=== PATIENT | female | born 1935 | race Caucasian/White ===

== ENCOUNTER → 2016-07-18 | Outpatient (CLI) | payer MEDICARE, OTHER | LOC: OD 10:35 | PROVIDERS: ATTEND Nurse Practitioner Adult Health | DX: Z08 Encounter for follow-up examination after completed treatment for malignant neoplasm (principal); Z85.118 Personal history of other malignant neoplasm of bronchus and lung | CPT/HCPCS: 71020 ==

== ENCOUNTER → 2016-11-23 | Outpatient (CLI) | payer MEDICARE, OTHER ==
[2016-11-23 10:21] LABS: CHOLESTEROL 130.36 mg/dL (0-200); Direct HDL 51 mg/dL (>40); TRIGLYCERIDES 129 mg/dL (<150)
[2016-11-23 10:38] LABS: DIRECT LDL 52 mg/dL (<100)
== END ==
LOC: OD 09:19
PROVIDERS: ATTEND Internal Medicine Cardiovascular Disease
DX: E78.00 Pure hypercholesterolemia, unspecified (principal)
CPT/HCPCS: 36415; 80061

== ENCOUNTER → 2016-12-20 | Outpatient (CLI) | payer MEDICARE, OTHER ==
[2016-12-20 12:25] LABS: ANION GAP 11 (5-19); BLOOD UREA NITROGEN 13 mg/dL (7-20); CALCIUM 9.6 mg/dL (8.4-10.2); CARBON DIOXIDE 29 mmol/L (22-30); CHLORIDE 102 mmol/L (98-107); CREATININE RESULT 0.62 mg/dL (0.52-1.25); GLUCOSE 63 mg/dL (75-110); MAGNESIUM 1.6 mg/dL (1.6-2.3); POTASSIUM 4.4 mmol/L (3.6-5.0); SODIUM 141.6 mmol/L (137-145)
== END ==
LOC: OD 10:54
PROVIDERS: ATTEND Internal Medicine Cardiovascular Disease
DX: Z79.899 Other long term (current) drug therapy (principal); E78.00 Pure hypercholesterolemia, unspecified; E83.42 Hypomagnesemia; E11.9 Type 2 diabetes mellitus without complications
CPT/HCPCS: 36415; 80048; 83036; 83735; 84443

== ENCOUNTER → 2017-01-10 | Outpatient (CLI) | payer MEDICARE, OTHER ==
[2017-01-10 16:38] LABS: HEMATOCRIT 36.4 % (36.0-47.0); HEMOGLOBIN 12.2 g/dL (12.0-15.5); HGB HCT DIFFERENCE 0.2; MEAN CORPUSCULAR HEMOGLOBIN 32.4 pg (27.0-33.4); MEAN CORPUSCULAR HGB CONC 33.5 g/dL (32.0-36.0); MEAN CORPUSCULAR VOLUME 97 fl (80-97); RED BLOOD COUNT 3.78 10^6/uL (3.72-5.28); RED CELL DISTRIBUTION WIDTH 13.5 % (11.5-14.0); WHITE BLOOD COUNT 5.7 10^3/uL (4.0-10.5)
--- NOTE | 2017-01-10 16:52 | RADIOLOGY REPORT (SQ) ---
EXAM DESCRIPTION: CHEST PA/LATERAL COMPLETED DATE/TIME: 01/10/2017 4:35 pm REASON FOR STUDY: COUGH,SHORTNESS OF BREATH COMPARISON: 07/18/2016 NUMBER OF VIEWS: Two view. TECHNIQUE: Frontal and lateral radiographic views of the chest acquired. LIMITATIONS: None. FINDINGS: LUNGS AND PLEURA: No opacities, masses or pneumothorax. No pleural effusion. MEDIASTINUM AND HILAR STRUCTURES: No masses or contour abnormalities. HEART AND VASCULATURE: Heart normal size. No evidence for failure. BONY STRUCTURES: No acute findings. HARDWARE: Status post transcatheter aortic valve replacement. OTHER: No other significant finding. IMPRESSION: No active pulmonary disease. Status post aortic valve replacement. TECHNICAL DOCUMENTATION: JOB ID: [id number] [employer]- All Rights Reserved
== END ==
LOC: OD 15:49
PROVIDERS: ATTEND Internal Medicine Cardiovascular Disease
DX: R06.02 Shortness of breath (principal); R05 Cough
CPT/HCPCS: 36415; 71020; 83880; 85027

== ENCOUNTER → 2017-02-02 | Outpatient (CLI) | payer MEDICARE, OTHER ==
--- NOTE | 2017-02-02 11:38 | RADIOLOGY REPORT (SQ) ---
EXAM DESCRIPTION: U/S ABD AORTIC SCREENING COMPLETED DATE/TIME: 02/02/2017 9:41 am REASON FOR STUDY: ESSENTIAL PRIMARY HYPERTENSION Z13.6 ENCOUNTER FOR SCREENING FOR CARDIOVASCULAR D ISORDERS COMPARISON: None. TECHNIQUE: Static and dynamic grayscale images acquired of the aorta and stored on PACs. Selected co romain Doppler and spectral images recorded. LIMITATIONS: None. FINDINGS: AORTIC CALIBER MAXIMAL PROXIMAL: 1.7 x 1.8 cm. MID: 1.8 x 2.1 cm. DISTAL: 2.4 x 2.4 cm. ILIAC DIAMETER RIGHT: 0.6 cm. LEFT: 0.8 cm. OTHER: There is some ectasia of the abdominal aorta with atherosclerotic plaquing IMPRESSION: NO ABDOMINAL AORTIC ANEURYSM. TECHNICAL DOCUMENTATION: JOB ID: [id number] [employer]- All Rights Reserved
== END ==
LOC: RAD 08:44
PROVIDERS: ATTEND Internal Medicine Cardiovascular Disease
DX: I10 Essential (primary) hypertension (principal)
CPT/HCPCS: 76706

== ENCOUNTER → 2017-03-16 | Outpatient (CLI) | payer MEDICARE, OTHER ==
[2017-03-16 15:28] LABS: ANION GAP 14 (5-19); BLOOD UREA NITROGEN 16 mg/dL (7-20); CALCIUM 9.5 mg/dL (8.4-10.2); CARBON DIOXIDE 27 mmol/L (22-30); CHLORIDE 104 mmol/L (98-107); CREATININE RESULT 0.69 mg/dL (0.52-1.25); GLUCOSE 125 mg/dL (75-110); SODIUM 145.3 mmol/L (137-145)
== END ==
LOC: OD 13:52
PROVIDERS: ATTEND Internal Medicine Cardiovascular Disease
DX: I35.9 Nonrheumatic aortic valve disorder, unspecified (principal); I70.0 Atherosclerosis of aorta; Z79.899 Other long term (current) drug therapy
CPT/HCPCS: 36415; 80048

== ENCOUNTER → 2018-01-04 | Outpatient (CLI) | payer MEDICARE, OTHER ==
[2018-01-04 09:58] LABS: HEMATOCRIT 39.4 % (36.0-47.0); HEMOGLOBIN 13.1 g/dL (12.0-15.5); MEAN CORPUSCULAR HEMOGLOBIN 32.2 pg (27.0-33.4); MEAN CORPUSCULAR HGB CONC 33.3 g/dL (32.0-36.0); MEAN CORPUSCULAR VOLUME 97 fl (80-97); PLATELET COUNT 264 10^3/uL (150-450); RED BLOOD COUNT 4.07 10^6/uL (3.72-5.28); RED CELL DISTRIBUTION WIDTH 14.3 % (11.5-14.0); WHITE BLOOD COUNT 6.2 10^3/uL (4.0-10.5)
[2018-01-04 10:39] LABS: ALANINE AMINOTRANSFERASE 21 U/L (9-52); ALBUMIN 4.1 g/dL (3.5-5.0); ALKALINE PHOSPHATASE 57 U/L (38-126); ANION GAP 10 (5-19); ASPARTATE AMINO TRANSFERASE 25 U/L (14-36); BILIRUBIN,DIRECT 0.3 mg/dL (0.0-0.4); BILIRUBIN,TOTAL 0.5 mg/dL (0.2-1.3); BLOOD UREA NITROGEN 16 mg/dL (7-20); CALCIUM 9.3 mg/dL (8.4-10.2); CARBON DIOXIDE 30 mmol/L (22-30); CHLORIDE 105 mmol/L (98-107); GLUCOSE 120 mg/dL (75-110); POTASSIUM 4.6 mmol/L (3.6-5.0); SODIUM 144.7 mmol/L (137-145); TOTAL PROTEIN 6.6 g/dL (6.3-8.2); TRIGLYCERIDES 118 mg/dL (<150)
[2018-01-04 10:50] LABS: DIRECT LDL 79 mg/dL (<100)
== END ==
LOC: LAB 09:34
PROVIDERS: ATTEND Internal Medicine Cardiovascular Disease
DX: E78.00 Pure hypercholesterolemia, unspecified (principal); R06.02 Shortness of breath; I10 Essential (primary) hypertension; E11.9 Type 2 diabetes mellitus without complications; Z79.899 Other long term (current) drug therapy
CPT/HCPCS: 36415; 80048; 80061; 80076; 83036; 83735; 83880; 84443; 85027

== ENCOUNTER → 2018-01-15 | Outpatient (CLI) | payer MEDICARE, OTHER ==
--- NOTE | 2018-01-15 11:00 | RADIOLOGY REPORT (SQ) ---
EXAM DESCRIPTION: CHEST PA/LATERAL COMPLETED DATE/TIME: 01/15/2018 10:33 am REASON FOR STUDY: SHORTNESS OF BREATH COMPARISON: Chest films 01/10/2017, 07/18/2016 CT chest 12/02/2015 EXAM PARAMETERS: NUMBER OF VIEWS: two views TECHNIQUE: Digital Frontal and Lateral radiographic views of the chest acquired. RADIATION DOSE: NA LIMITATIONS: none FINDINGS: LUNGS AND PLEURA: Old right upper lobectomy. Lungs are otherwise well inflated and clear. No pleural effusion. No pneumothorax MEDIASTINUM AND HILAR STRUCTURES: Surgical clips right hilum post upper lobectomy HEART AND VASCULAR STRUCTURES: No cardiomegaly. Aortic valve replacement BONES: Osteoporotic without acute thoracic compression deformity HARDWARE: Aortic valve OTHER: No other significant finding. 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
== END ==
LOC: OD 10:26
PROVIDERS: ATTEND Internal Medicine Cardiovascular Disease
DX: J44.9 Chronic obstructive pulmonary disease, unspecified (principal); R06.02 Shortness of breath; Z95.2 Presence of prosthetic heart valve
CPT/HCPCS: 71046

== ENCOUNTER → 2018-01-23 | Outpatient (CLI) | payer MEDICARE, OTHER ==
--- NOTE | 2018-01-23 09:12 | RADIOLOGY REPORT (SQ) ---
EXAM DESCRIPTION: U/S ABD AORTIC SCREENING COMPLETED DATE/TIME: 01/23/2018 8:58 am REASON FOR STUDY: ABDOMINAL PAIN R10.9 UNSPECIFIED ABDOMINAL PAIN COMPARISON: 02/02/2017 TECHNIQUE: Static and dynamic grayscale images acquired of the aorta and stored on PACs. Selected co romain Doppler and spectral images recorded. LIMITATIONS: The examination is somewhat limited due to bowel gas. FINDINGS: AORTIC CALIBER MAXIMAL PROXIMAL: 2.3 cm. MID: 2.7 cm. DISTAL: 2.6 cm. ILIAC DIAMETER RIGHT: Not visualized due to overlying bowel gas. LEFT: Not visualized due to overlying bowel gas. OTHER: Atherosclerotic changes involving the abdominal aorta. The abdominal aorta is ectatic in [place]. IMPRESSION: 1. The examination is limited as noted above. 2. The abdominal aorta is ectatic in appearance and atherosclerotic changes are identified. COMMENT: Aorta screening examinations categories: Negative - less than 3 cm. TECHNICAL DOCUMENTATION: JOB ID: [id number] [employer] All Rights Reserved Reading location - IP/workstation name: [email or web address]
== END ==
LOC: RAD 07:56
PROVIDERS: ATTEND Internal Medicine Cardiovascular Disease
DX: R10.9 Unspecified abdominal pain (principal); I70.1 Atherosclerosis of renal artery
CPT/HCPCS: 76706

== ENCOUNTER → 2018-02-18 | Outpatient (CLI) | payer MEDICARE, OTHER ==
[2018-02-18 09:19] LABS: ANION GAP 6 (5-19); BLOOD UREA NITROGEN 13 mg/dL (7-20); CARBON DIOXIDE 28 mmol/L (22-30); CHLORIDE 107 mmol/L (98-107); GLUCOSE 99 mg/dL (75-110); SODIUM 141.3 mmol/L (137-145)
== END ==
LOC: LAB 08:30
PROVIDERS: ATTEND Internal Medicine Cardiovascular Disease
DX: I10 Essential (primary) hypertension (principal); R06.02 Shortness of breath; E55.9 Vitamin D deficiency, unspecified
CPT/HCPCS: 36415; 80048; 82306; 83880

== ENCOUNTER 2018-11-16 03:21 | Inpatient (IN) | payer MEDICARE, OTHER ==
[2018-11-16] MEDS ORDERED: ONDANSETRON HCL INJ/PF 4 MG/2 ML SDV IV ONE (03:33)
[2018-11-16] MEDS ORDERED: FENTANYL CITRATE INJ/PF 100 MCG/2 ML AMPUL IV ONE (03:33)
--- NOTE | 2018-11-16 04:07 | ER Document Report ---
ED Fall - General Stated Complaint: RIGHT HIP PAIN Time Seen by Provider: 11/16/18 03:31 Mode of Arrival: Medic Information source: Patient Notes: Patient is an 83-year-old female presented to the emergency department after falling at home. Patient reports that she was walking behind the couch when she tripped over some cords. She states she landed on the right side. She is complaining of pain to her right lower extremity near the mid thigh. She has brought in via EMS. She has obvious external rotation of the right lower extremity with shortening. She was given 50 mcg of nasal fentanyl and 4 mg of Zofran ODT by EMS as they were unable to obtain an IV. Patient has past medical history of diabetes, hypertension and takes Lasix for what she says is peripheral edema. Patient denies history of CHF. TRAVEL OUTSIDE OF THE [place] IN LAST 30 DAYS: No - Related data Allergies/Adverse Reactions: pregabalin [From Lyrica] Allergy (Mild, Verified 11/16/18 05:16) WEAKNESS OF LIMBS, SWELLING IN LEGS Past Medical History - General Information source: Patient - Social History Smoking Status: Never Smoker Frequency of alcohol use: None Drug Abuse: None Family History: Reviewed & Not Pertinent - Past Medical History Cardiac Medical History: Reports: Hx Coronary Artery Disease, Hx Hypertension Denies: Hx Heart Attack Pulmonary Medical History: Reports: Hx COPD Denies: Hx Asthma, Hx Bronchitis, Hx Pneumonia Neurological Medical History: Denies: Hx Cerebrovascular Accident, Hx Seizures Musculoskeletal Medical History: Denies Hx Arthritis Past Surgical History: Reports: Hx Cardiac Catheterization - with stent placeme nt - Immunizations Immunizations up to date: Yes Hx Diphtheria, Pertussis, Tetanus Vaccination: No Review of Systems - Review of Systems Constitutional: No symptoms reported EENT: No symptoms reported Cardiovascular: No symptoms reported Respiratory: No symptoms reported Gastrointestinal: No symptoms reported Genitourinary: No symptoms reported Female Genitourinary: No symptoms reported Musculoskeletal: See HPI Skin: No symptoms reported Hematologic/Lymphatic: No symptoms reported Neurological/Psychological: No symptoms reported Physical Exam - Vital signs Vitals: Temp Pulse Resp BP Pulse Ox 97.6 F 91 15 132/96 H 99 11/16/18 03:21 11/16/18 03:21 11/16/18 03:21 11/16/18 03:21 11/16/18 03:21 - Notes Notes: PHYSICAL EXAMINATION: GENERAL: Well-appearing, well-nourished and in no acute distress. HEAD: Atraumatic, normocephalic. EYES: Pupils equal round and reactive to light, extraocular movements intact, conjunctiva are normal. ENT: Nares patent, oropharynx clear without exudates. Moist mucous membranes. NECK: Normal range of motion, supple without lymphadenopathy LUNGS: Breath sounds clear to auscultation bilaterally and equal. No wheezes rales or rhonchi. HEART: Regular rate and rhythm without murmurs ABDOMEN: Soft, nontender, nondistended abdomen. No guarding, no rebound. No masses appreciated. Female : deferred Musculoskeletal: Deformity noted to right hip area, external rotation noted to right lower extremity, shortening present. Strong dorsalis pedis pulse, normal motor and sensation distal to injury. Cap refill less than 3 seconds. NEUROLOGICAL: Cranial nerves grossly intact. Normal speech. Normal sensory, motor exams. PSYCH: Normal mood, normal affect. SKIN: Warm, Dry, normal turgor, no rashes or lesions noted. Course - Re-evaluation Re-evalutation: 11/16/18 05:15 Consulted orthopedic surgeon diamond cutter, Dr. Forde. He will consult on this patient and would like the patient admitted to the hospitalist. Patient accepted for admission by hospitalist, Dr. Mccall. Patient and family updated on plan of care. Femur X-Ray 11/16/18 03:31 IMPRESSION: Intertrochanteric fracture deformity better seen on dedicated pelvis x-ray. Osteopenia. No distal femur fracture copyright 2010 [employer]- All Rights Reserved Pelvis X-Ray 11/16/18 03:31 IMPRESSION: 1. Displaced intertrochanteric fracture of the proximal right femur with acute angulation of the fracture fragments. 2. Bilateral iliac artery stents are noted. - Vital Signs Vital signs: Temp Pulse Resp BP Pulse Ox 97.6 F 91 19 104/73 97 11/16/18 03:21 11/16/18 03:21 11/16/18 05:46 11/16/18 05:46 11/16/18 05:46 - Laboratory Result Diagrams: 11/16/18 03:38 11/16/18 03:38 Laboratory results interpreted by me: 11/16/18 11/16/18 03:38 03:38 WBC 20.7 H RDW 14.1 H Seg Neuts % (Manual) 88 H Lymphocytes % (Manual) 5 L Abs Neuts (Manual) 18.2 H BUN 23 H Glucose 216 H Discharge - Discharge Clinical Impression: Intertrochanteric fracture of right hip Condition: Stable Disposition: ADMITTED INPATIENT Admitting Provider: Stefany (Hospitalist) Unit Admitted: Medical Floor
--- NOTE | 2018-11-16 04:53 | RADIOLOGY REPORT (SQ) ---
EXAM DESCRIPTION: XR FEMUR 2 VIEWS COMPLETED DATE/TME: 11/16/2018 03:31 CLINICAL HISTORY: 83 years, Female, fall, RT leg pain, external rotation COMPARISON: None. NUMBER OF VIEWS: 3 TECHNIQUE: 3 view right femur LIMITATIONS: None. FINDINGS: Osteopenia. Displaced intertrochanteric fracture deformity, better seen on dedicated AP pelvis from today's date. No distal femur fracture. Vascular calcifications IMPRESSION: Intertrochanteric fracture deformity better seen on dedicated pelvis x-ray. Osteopenia. No distal femur fracture copyright 2010 [employer]- All Rights Reserved
[2018-11-16 04:54] LABS: HEMATOCRIT 37.7 % (36.0-47.0); HEMOGLOBIN 12.4 g/dL (12.0-15.5); MEAN CORPUSCULAR HEMOGLOBIN 31.9 pg (27.0-33.4); MEAN CORPUSCULAR HGB CONC 32.8 g/dL (32.0-36.0); MEAN CORPUSCULAR VOLUME 97 fl (80-97); PLATELET COUNT 306 10^3/uL (150-450); RED BLOOD COUNT 3.87 10^6/uL (3.72-5.28); RED CELL DISTRIBUTION WIDTH 14.1 % (11.5-14.0); WHITE BLOOD COUNT 20.7 10^3/uL (4.0-10.5)
--- NOTE | 2018-11-16 04:58 | RADIOLOGY REPORT (SQ) ---
EXAM: X-ray pelvis 1-2 views CLINICAL DATA: 83-year-old female with right leg pain status post fall TECHNICAL DATA: A single AP x-ray view of the pelvis was performed on 11/16/2018 at 4:12 AM. COMPARISONS: None FINDINGS: There is a displaced intertrochanteric fracture of the proximal right femur with acute angulation of the fracture fragments. The hip joints are intact. The sacroiliac joints and pubic symphysis are intact. No pathologic lytic or sclerotic bone lesions are identified. Bone mineralization is normal. Bilateral iliac artery stents are noted. Occasional vascular calcifications are seen. There are surgical clips in the left inguinal region. IMPRESSION: 1. Displaced intertrochanteric fracture of the proximal right femur with acute angulation of the fracture fragments. 2. Bilateral iliac artery stents are noted.
[2018-11-16 05:00] LABS: ALANINE AMINOTRANSFERASE 20 U/L (9-52); ALBUMIN 4.2 g/dL (3.5-5.0); ALKALINE PHOSPHATASE 65 U/L (38-126); ANION GAP 11 (5-19); ASPARTATE AMINO TRANSFERASE 31 U/L (14-36); BILIRUBIN,DIRECT 0.3 mg/dL (0.0-0.4); BILIRUBIN,TOTAL 0.5 mg/dL (0.2-1.3); BLOOD UREA NITROGEN 23 mg/dL (7-20); CALCIUM 9.3 mg/dL (8.4-10.2); CARBON DIOXIDE 25 mmol/L (22-30); CHLORIDE 103 mmol/L (98-107); GLUCOSE 216 mg/dL (75-110); POTASSIUM 3.8 mmol/L (3.6-5.0); TOTAL PROTEIN 7.1 g/dL (6.3-8.2)
[2018-11-16] MEDS ORDERED: MORPHINE SULFATE 10 MG/ML INJ IV ONE (05:08)
[2018-11-16 05:14] LABS: ABSOLUTE MONOCYTES # (MANUAL) 1.4 10^3/uL (0.1-1.4); BASOPHILS % (MANUAL) 0 % (0-2); EOSINOPHILS % (MANUAL) 0 % (0-6); LYMPHOCYTES % (MANUAL) 5 % (13-45); MONOCYTES % (MANUAL) 7 % (3-13); PLATELET COMMENT ADEQUATE; RBC MORPHOLOGY COMMENT NORMO-CYTIC/CHROMIC; SEGMENTED NEUTROPHILS % (MAN) 88 % (42-78); TOTAL CELLS COUNTED 100
[2018-11-16] MEDS ORDERED: HYDRALAZINE HCL INJ/PF 20 MG/1 ML SDV IV PRN (05:55)
[2018-11-16] MEDS ORDERED: MORPHINE SULFATE 10 MG/ML INJ IV PRN ×2 (05:55→06:00)
[2018-11-16] MEDS ORDERED: ACETAMINOPHEN 650 MG SUPP.RECT PR PRN (05:55)
[2018-11-16] MEDS ORDERED: LEVALBUTEROL HCL NEB 0.63 MG/3 ML AMPUL NEB PRN (05:55)
[2018-11-16] MEDS ORDERED: METOPROLOL TARTRATE PF/INJ 5 MG/5 ML SDV IV PRN (05:55)
[2018-11-16] MEDS: RINGERS SOLUTION,LACTATED 1,000 ML IV PRN ×2 (06:40→17:49)
--- NOTE | 2018-11-16 06:40 | PDOC H&P ---
History of Present Illness Admission Date/PCP: 11/16/2018 05:20 SAHRA BRAGA NP Patient complains of: Right hip pain History of Present Illness: MADELYN ANDERSON is a 83 year old female who presented to the emergency room via EMS with acute right hip pain. She admits tripping over some cords behind her couch causing her to fall, landing on her right side with the instantaneous onset of pain in her right hip area. She describes the pain as a constant, severe, sharp stabbing and grating pain in the right hip area, without radiation, worsened by any movement of her right lower extremity. She denies prior similar episodes and has not identified any additional aggravating or ameliorating factors for her hip pain. In the emergency room she was found to h ave a closed, displaced, intertrochanteric fracture of the right hip. She was subsequently admitted to the hospital for further evaluation and treatment. Past Medical History Cardiac Medical History: Reports: Coronary Artery Disease, Hyperlipidema, Hypertension, Other - Valvular heart disease Denies: Myocardial Infarction Pulmonary Medical History: Reports: Chronic Obstructive Pulmonary Disease (COPD) Denies: Asthma, Bronchitis, Pneumonia, Respiratory Failure, Sleep Apnea EENT Medical History: Reports: Cataracts Denies: Ears - Hearing aids Neurological Medical History: Denies: Hemorrhagic CVA, Ischemic CVA, Multiple Sclerosis, Seizures Endocrine Medical History: Reports: Diabetes Mellitus Type 2 Denies: Diabetes Mellitus Type 1, Hyperthyroidism, Hypothyroidism, Obesity Renal/ Medical History: Denies: Chronic Kidney Disease, Nephrolithiasis Malignancy Medical History: Reports: None GI Medical History: Denies: Cirrhosis, Crohn's Disease, Hepatitis, Ulcerative Colitis Musculoskeltal Medical History: Denies: Arthritis, Gout Skin Medical History: Denies: Eczema, Psoriasis Psychiatric Medical History: Reports: Depression, General Anxiety Disorder, Tobacco Dependency Denies: Alcohol Dependency, Substance Abuse Traumatic Medical History: Reports: None Hematology: Reports: Anemia - Pernicious anemia requiring monthly vitamin B12 injections Denies: Bleeding Tendencies Infectious Medical History: Reports: None Past Surgical History Past Surgical History: Reports: Cardiac Catheterization, Hysterectomy, Valve Replacement - Mitral, Vascular Surgery - Stents in both legs, Other - Bilateral cataracts Social History Information Source: Patient Lives with: Alone Smoking Status: Never Smoker Frequency of Alcohol Use: None Hx Recreational Drug Use: No Drugs: None Hx Prescription Drug Abuse: No - Advance Directive Resuscitation Status: Full Code Surrogate healthcare decision maker:: Navya Daley Family History Family History: DM, Malignancy. denies: CAD, Hypertension Parental Family History Reviewed: Yes Children Family History Reviewed: No Sibling(s) Family History Reviewed.: Yes Medication/Allergy Home Medications: Aspirin [Ecotrin] 81 mg PO DAILY 02/23/16 Ezetimibe [Zetia 10 mg Tablet] 10 mg PO DAILY 02/23/16 Lisinopril [Zestril] 5 mg PO BID 02/23/16 Sertraline HCl [Zoloft 50 mg Tablet] 50 mg PO DAILY 02/23/16 Simvastatin 40 mg PO QHS 02/23/16 Sitagliptin Phosphate [Januvia] 100 mg PO DAILY 02/23/16 Levothyroxine Sodium [Synthroid 0.025 mg Tablet] 25 mcg PO QHS 11/16/18 Omeprazole Magnesium [Prilosec Otc] 20 mg PO DAILY 11/16/18 Allergies/Adverse Reactions: pregabalin [From Lyrica] Allergy (Mild, Verified 11/16/18 05:16) WEAKNESS OF LIMBS, SWELLING IN LEGS Review of Systems Constitutional: ABSENT: chills, fever(s) Eyes: ABSENT: visual disturbances, other - Eye pain Ears: ABSENT: hearing changes, other - Ear pain Nose, Mouth, and Throat: ABSENT: mouth pain, sore throat Cardiovascular: ABSENT: chest pain, palpitations Respiratory: ABSENT: cough, dyspnea Gastrointestinal: ABSENT: abdominal pain, constipation, diarrhea, nausea, vomiting Genitourinary: ABSENT: dysuria, hematuria Musculoskeletal: ABSENT: back pain, joint swelling, muscle weakness Integumentary: ABSENT: pruritus, rash Neurological: ABSENT: confusion, convulsions, focal weakness, memory loss, syncope Psychiatric: ABSENT: anxiety, depression Endocrine: ABSENT: cold intolerance, heat intolerance Hematologic/Lymphatic: ABSENT: easy bleeding, easy bruising - [id number] Physical Exam Vital Signs: Temp Pulse Resp BP Pulse Ox 97.6 F 91 21 H 139/47 H 99 11/16/18 03:21 11/16/18 03:21 11/16/18 05:01 11/16/18 05:01 11/16/18 05:01 Intake & Output 11/14/18 11/15/18 11/16/18 23:59 23:59 23:59 Weight 54.4 kg General appearance: PRESENT: cooperative, mild distress - Secondary to right hip pain Head exam: PRESENT: atraumatic, normocephalic Eye exam: PRESENT: conjunctiva pink. ABSENT: conjunctival injection, scleral icterus Ear exam: PRESENT: normal external ear exam. ABSENT: bleeding, drainage Mouth exam: PRESENT: dry mucosa, neck supple Neck exam: ABSENT: JVD, thyromegaly, tracheal deviation Respiratory exam: PRESENT: clear to auscultation manuel, symmetrical, unlabored Cardiovascular exam: PRESENT: RRR. ABSENT: clicks, gallop, rubs Pulses: PRESENT: normal radial pulses, normal dorsalis pedis pul Vascular exam: PRESENT: normal capillary refill. ABSENT: pallor GI/Abdominal exam: PRESENT: normal bowel sounds, soft Rectal exam: PRESENT: deferred Extremities exam: PRESENT: tenderness - Right hip, other - Neurovascular fu nction intact in the right lower extremity. ABSENT: joint swelling, pedal edema Musculoskeletal exam: PRESENT: deformity - Right lower extremity shows shortening and external rotation. ABSENT: dislocation Neurological exam: PRESENT: alert, oriented to person, oriented to place, oriented to time, oriented to situation, CN II-XII grossly intact. ABSENT: motor sensory deficit Psychiatric exam: PRESENT: appropriate affect, normal mood Skin exam: PRESENT: dry, intact, warm. ABSENT: jaundice, rash, urticaria Results Laboratory Results: 11/16/18 03:38 11/16/18 03:38 11/16/18 11/16/18 03:38 03:38 WBC 20.7 H RBC 3.87 Hgb 12.4 Hct 37.7 MCV 97 MCH 31.9 MCHC 32.8 RDW 14.1 H Plt Count 306 Seg Neutrophils % Not Reportable Lymphocytes % Not Reportable Monocytes % Not Reportable Eosinophils % Not Reportable Basophils % Not Reportable Absolute Neutrophils Not Reportable Absolute Lymphocytes Not Reportable Absolute Monocytes Not Reportable Absolute Eosinophils Not Reportable Absolute Basophils Not Reportable Sodium 139.0 Potassium 3.8 Chloride 103 Carbon Dioxide 25 Anion Gap 11 BUN 23 H Creatinine 0.77 Est GFR ( Amer) > 60 Est GFR (Non-Af Amer) > 60 Glucose 216 H Calcium 9.3 Total Bilirubin 0.5 AST 31 ALT 20 Alkaline Phosphatase 65 Total Protein 7.1 Albumin 4.2 Impressions: Femur X-Ray 11/16/18 03:31 IMPRESSION: Intertrochanteric fracture deformity better seen on dedicated pelvis x-ray. Osteopenia. No distal femur fracture copyright 2010 [employer]- All Rights Reserved Pelvis X-Ray 11/16/18 03:31 IMPRESSION: 1. Displaced intertrochanteric fracture of the proximal right femur with acute angulation of the fracture fragments. 2. Bilateral iliac artery stents are noted. Assessment and Plan - Diagnosis (1) Closed intertrochanteric fracture of right femur Qualifiers: Encounter type: initial encounter Fracture alignment: displaced Qualified Code(s): S72.141A - Displaced intertrochanteric fracture of right femur, initial encounter for closed fracture Is this a current diagnosis for this admission?: Yes Plan: Patient be treated by Dr. Forde, who has been consulted for definitive management and care of her fracture. She received morphine sulfate 2 to 4 mg IV every 2 hours on a as needed basis for pain per a sliding scale. A daily CBC will be included in part of patient's management both pre-and postoperatively. (2) Hypertension Qualifiers: Hypertension type: essential hypertension Qualified Code(s): I10 - Essential (primary) hypertension Is this a current diagnosis for this admission?: Yes Plan: Patient will be continued on her usual antihypertensive medication as soon as she is back to taking oral medications. In the interim hydralazine 20 mg IV every 4 hours and or metoprolol 5 mg IV every 4 hours will be used to maintain a systolic blood pressure less than 160 and a diastolic blood pressure less than 100. A daily metabolic profile and magnesium level will be obtained as part of the ongoing management of her hypertension. Patient's blood pressure be monitored closely throughout her hospital course. A thyroid profile will be obtained as part of the assessment of patient's hypertension. (3) Hyperlipidemia Qualifiers: Hyperlipidemia type: unspecified Qualified Code(s): E78.5 - Hyperlipidemia, unspecified Is this a current diagnosis for this admission?: Yes Plan: Patient be continued on her usual hyperlipidemia regiment once she is able to take oral medications again. A lipid profile will be obtained to assess her current therapy. (4) Coronary artery disease Qualifiers: Coronary Disease-Associated Artery/Lesion type: [place] artery [place] vs. transplanted heart: [place] heart Associated angina: without angina Qualified Code(s): I25.10 - Atherosclerotic heart disease of [place] coronary artery without angina pectoris Is this a current diagnosis for this admission?: Yes Plan: Patient will be continued on her usual cardiac medications once she is able to take oral medication again. In the interim she will be treated on a symptomatic basis should she develop chest pain or other cardiac symptoms. (5) Chronic obstructive pulmonary disease Qualifiers: COPD type: unspecified COPD Qualified Code(s): J44.9 - Chronic obstructive pulmonary disease, unspecified Is this a current diagnosis for this admission?: Yes Plan: Patient will be continued on her usual COPD medications when she is able to resume oral intake. In the interim she will be treated with nebulizer therapy using Xopenex, Atrovent and Pulmicort. Her oxygen saturation and respiratory status will be monitored closely throughout hospital course. (6) Diabetes mellitus type 2 in nonobese Is this a current diagnosis for this admission?: Yes Plan: Patient will be continued on her usual diabetic medications and diet when she is able to take oral intake again. In the interim she will be managed with before meals and at bedtime Accu-Cheks and sliding scale insulin. She will also have a hypoglycemia treatment regimen/protocol available. Hemoglobin A1c will be obtained to evaluate her current therapy. - Time Time Spent with patient: 25-34 minutes Medications reviewed and adjusted accordingly: Yes Anticipated discharge: SNF, Acute Rehab - Inpatient Certification Based on my medical assessment, after consideration of the patient's comorbidities, presenting symptoms, or acuity I expect that the services needed warrant INPATIENT care.: Yes I certify that my determination is in accordance with my understanding of Medicare's requirements for reasonable and necessary INPATIENT services [42 CFR 412.3e].: Yes Medical Necessity: Significant Comorbidiites Make Outpatient Treatment Too Risky, Need Close Monitoring Due to Risk of Patient Decompensation, Need For IV Fluids, Need for Pain Control, Need for Surgery, Risk of Complication if Not Cared For in Hospital
--- NOTE | 2018-11-16 06:43 | ADVANCED CARE ---
- Diagnosis (1) Closed intertrochanteric fracture of right femur Diagnosis Current: Yes (2) Hypertension Diagnosis Current: Yes (3) Hyperlipidemia Diagnosis Current: Yes (4) Coronary artery disease Diagnosis Current: Yes (5) Chronic obstructive pulmonary disease Diagnosis Current: Yes (6) Diabetes mellitus type 2 in nonobese Diagnosis Current: Yes Attendance: The patient and myself. Resuscitation Status: Do Not Resuscitate Discussion: Patient is informed me that after several discussions with her family she is determined that she wishes to be a DO NOT RESUSCITATE CODE STATUS for this and any other hospital admission should she have a spontaneous cardiac or respiratory arrest. Additionally she has named Yolanda Daley, her daughter and medical power of privacy attorney, as her designated surrogate medical decision- maker. Care Planning Goals: 1. Patient wishes to be DNR CODE STATUS. 2. Navya Daley is her designated surrogate medical decision-maker. Document(s) Completed: The following items will be entered into the patient's permanent medical record including her current record and current medical orders via EMR entry: 1. Patient wishes to be DNR CODE STATUS. 2. Navya Daley is her designated surrogate medical decision-maker. Time Spent: 5 minutes
[2018-11-16 06:45] LABS: FREE T3 4.19 pg/mL (2.77-5.27); FREE T4 (FREE THYROXINE) 1.61 ng/dL (0.78-2.19)
[2018-11-16] MEDS: HEPARIN SOD (PORCINE) 5,000 UNIT/ML 1 ML SYRINGE SUBCUT SCH ×2 (06:47→18:23)
[2018-11-16 06:58] LABS: THYROID STIMULATING HORMONE 7.93 uIU/mL (0.47-4.68)
[2018-11-16] MEDS: MORPHINE SULFATE 10 MG/ML INJ IV PRN ×3 (07:41→19:03)
--- NOTE | 2018-11-16 09:06 | PDOC PROGRESS REPORT ---
Subjective Progress Note for:: 11/16/18 Subjective:: Ms. Rojas is a very pleasant 83-year-old female who sustained a fall with subsequent right intertrochanteric fracture. Patient was seen by Dr. morris this morning. Labs have returned showing a leukocytosis of 20,000. I am going to get a stat chest film UA blood cultures and start patient on Rocephin. Reason For Visit: INTERTROCHANTERIC FRACTURE OF RIGHT HIP Physical Exam Vital Signs: Temp Pulse Resp BP Pulse Ox 98.0 F 97 16 113/43 L 93 11/16/18 08:12 11/16/18 08:12 11/16/18 08:12 11/16/18 08:12 11/16/18 08:12 Intake & Output 11/15/18 11/16/18 11/17/18 06:59 06:59 06:59 Weight 54.4 kg 56 kg Results Laboratory Results: 11/16/18 03:38 11/16/18 03:38 11/16/18 11/16/18 11/16/18 03:38 03:38 03:38 WBC 20.7 H RBC 3.87 Hgb 12.4 Hct 37.7 MCV 97 MCH 31.9 MCHC 32.8 RDW 14.1 H Plt Count 306 Seg Neutrophils % Not Reportable Lymphocytes % Not Reportable Monocytes % Not Reportable Eosinophils % Not Reportable Basophils % Not Reportable Absolute Neutrophils Not Reportable Absolute Lymphocytes Not Reportable Absolute Monocytes Not Reportable Absolute Eosinophils Not Reportable Absolute Basophils Not Reportable Sodium 139.0 Potassium 3.8 Chloride 103 Carbon Dioxide 25 Anion Gap 11 BUN 23 H Creatinine 0.77 Est GFR ( Amer) > 60 Est GFR (Non-Af Amer) > 60 Glucose 216 H Calcium 9.3 Total Bilirubin 0.5 AST 31 ALT 20 Alkaline Phosphatase 65 Total Protein 7.1 Albumin 4.2 TSH 7.93 H Free T4 1.61 Free T3 pg/mL 4.19 Impressions: Femur X-Ray 11/16/18 03:31 IMPRESSION: Intertrochanteric fracture deformity better seen on dedicated pelvis x-ray. Osteopenia. No distal femur fracture copyright 2011 [employer]- All Rights Reserved Pelvis X-Ray 11/16/18 03:31 IMPRESSION: 1. Displaced intertrochanteric fracture of the proximal right femur with acute angulation of the fracture fragments. 2. Bilateral iliac artery stents are noted.
--- NOTE | 2018-11-16 09:07 | Progress Note Acknowledgement ---
Progress Note Acknowledgement Progess Note Acknowledgement: I, the undersigned member of the medical staff with appropriate privileges and with supervisory authority over Robert Yuen, a [facility] practice allied health professional, acknowledge that I have reviewed the progress notes entered on this patient, and in my professional judgment believe that the assessment made and/or any care evidenced was appropriate
[2018-11-16] MEDS: IPRATROPIUM BROMIDE 0.02% NEB 0.5 MG/2.5 ML AMPUL NEB SCH ×2 (09:58→15:55)
[2018-11-16] MEDS: BUDESONIDE NEB 0.5 MG/2 ML AMPUL NEB SCH ×2 (09:59→19:29)
[2018-11-16] MEDS: LEVALBUTEROL HCL NEB 1.25 MG/3 ML AMPUL NEB SCH ×2 (09:59→15:55)
[2018-11-16] MEDS ORDERED: CEFTRIAXONE 1 GM/D5W RTU 1 GM/50 ML RTUPB IV SCH (10:00)
[2018-11-16] MEDS: FAMOTIDINE INJ/PF 20 MG/2 ML SDV IV SCH ×2 (10:09→21:12)
[2018-11-16] MEDS ORDERED: DEXTROSE 50%-WATER 25 GM/50 ML DISP.SYRIN IV PRN ×2 (10:47)
[2018-11-16] MEDS ORDERED: GLUCAGON,HUMAN RECOMB 1 MG INJ SUBCUT PRN (10:47)
[2018-11-16] MEDS ORDERED: DEXTROSE 40% GEL 15 GM TUBE PO PRN ×2 (10:47)
--- NOTE | 2018-11-16 10:47 | PDOC CONSULTATION ---
Consultation Consult Date: 11/16/18 Attending physician:: ELBA PALMA Provider Consulted: MAGNOLIA SKELTON History of Present Illness Admission Date/PCP: 11/16/18 05:35 SAHRA BRAGA NP Patient complains of: Left Hip Pain History of Present Illness: MADELYN ANDERSON is a 83 year old female community ambulator who last evening was getting up from her new recliner tripped on 1 of the wires falling onto her right hip. Patient was unable to ambulate after the injury fall and was brought to the emergency room. Patient states pain is worse with motion but currently tolerable. Denies numbness or tingling. Pain 4/10. Denies headache dizziness or loss of consciousness. Past Medical History Cardiac Medical History: Reports: Coronary Artery Disease, Hyperlipidema, Hypertension, Other - Valvular heart disease Denies: Myocardial Infarction Pulmonary Medical History: Reports: Chronic Obstructive Pulmonary Disease (COPD) Denies: Asthma, Bronchitis, Pneumonia, Respiratory Failure, Sleep Apnea EENT Medical History: Reports: Cataracts Denies: Ears - Hearing aids Neurological Medical History: Denies: Hemorrhagic CVA, Ischemic CVA, Multiple Sclerosis, Seizures Endocrine Medical History: Reports: Diabetes Mellitus Type 2 Denies: Diabetes Mellitus Type 1, Hyperthyroidism, Hypothyroidism, Obesity Renal/ Medical History: Denies: Chronic Kidney Disease, Nephrolithiasis Malignancy Medical History: Reports: None GI Medical History: Denies: Cirrhosis, Crohn's Disease, Hepatitis, Ulcerative Colitis Musculoskeltal Medical History: Denies: Arthritis, Gout Skin Medical History: Denies: Eczema, Psoriasis Psychiatric Medical History: Reports: Depression, General Anxiety Disorder, Tobacco Dependency Denies: Alcohol Dependency, Substance Abuse Traumatic Medical History: Reports: None Hematology: Reports: Anemia - Pernicious anemia requiring monthly vitamin B12 injections Denies: Bleeding Tendencies Infectious Medical History: Reports: None Past Surgical History Past Surgical History: Reports: Cardiac Catheterization, Coronary Stent, Hysterectomy, Valve Replacement - Mitral, Vascular Surgery - Stents in both legs, Other - Bilateral cataracts Social History Lives with: Alone Smoking Status: Never Smoker Frequency of Alcohol Use: None Hx Recreational Drug Use: No Drugs: None Hx Prescription Drug Abuse: No - Advance Directive Resuscitation Status: Do Not Resuscitate Family History Family History: DM, Malignancy. denies: CAD, Hypertension Parental Family History Reviewed: No Children Family History Reviewed: No Sibling(s) Family History Reviewed.: No Medication/Allergy Home Medications: Aspirin [Ecotrin] 81 mg PO DAILY 02/23/16 Lisinopril [Zestril] 5 mg PO Q12 02/23/16 Sitagliptin Phosphate [Januvia] 100 mg PO DAILY 02/23/16 Brimonidine Tartrate [Alphagan P] 1 drop OU BID 11/16/18 Latanoprost/Pf [Latanoprost 0.005% Eye Drop] 1 drop OU QAM 11/16/18 Levothyroxine Sodium [Synthroid 0.025 mg Tablet] 25 mcg PO QHS 11/16/18 Omeprazole Magnesium [Prilosec Otc] 20 mg PO DAILY 11/16/18 Sertraline HCl [Zoloft] 25 mg PO DAILY 11/16/18 Allergies/Adverse Reactions: pregabalin [From Lyrica] Allergy (Mild, Verified 11/16/18 05:16) WEAKNESS OF LIMBS, SWELLING IN LEGS Review of Systems Constitutional: ABSENT: chills, fever(s), headache(s), weight gain, weight loss Eyes: ABSENT: visual disturbances Ears: ABSENT: hearing changes Cardiovascular: ABSENT: chest pain, dyspnea on exertion, edema, orthropnea, palpitations Respiratory: ABSENT: cough, hemoptysis Gastrointestinal: ABSENT: abdominal pain, constipation, diarrhea, hematemesis, hematochezia, nausea, vomiting Genitourinary: ABSENT: dysuria, hematuria Musculoskeletal: PRESENT: as per HPI Integumentary: ABSENT: rash, wounds Neurological: ABSENT: abnormal gait, abnormal speech, confusion, dizziness, focal weakness, syncope Psychiatric: ABSENT: anxiety, depression, homidical ideation, suicidal ideation Endocrine: ABSENT: cold intolerance, heat intolerance, menstrual abnormalities, polydipsia, polyuria Hematologic/Lymphatic: ABSENT: easy bleeding, easy bruising, lymphadenopathy Physical Exam Vital Signs: Temp Pulse Resp BP Pulse Ox 98.0 F 97 16 113/43 L 93 11/16/18 08:12 11/16/18 08:12 11/16/18 08:12 11/16/18 08:12 11/16/18 08:12 Intake & Output 11/15/18 11/16/18 11/17/18 06:59 06:59 06:59 Weight 54.4 kg 56 kg General appearance: PRESENT: no acute distress, well-developed, well-nourished Head exam: PRESENT: atraumatic, normocephalic Eye exam: PRESENT: conjunctiva pink, EOMI, PERRLA. ABSENT: scleral icterus Ear exam: PRESENT: normal external ear exam Mouth exam: PRESENT: moist, tongue midline Neck exam: PRESENT: full ROM. ABSENT: carotid bruit, JVD, lymphadenopathy, thyromegaly Respiratory exam: PRESENT: unlabored Cardiovascular exam: PRESENT: RRR. ABSENT: diastolic murmur, rubs, systolic murmur Pulses: PRESENT: normal dorsalis pedis pul, +2 pedal pulses bilateral Vascular exam: PRESENT: normal capillary refill GI/Abdominal exam: PRESENT: normal bowel sounds, soft. ABSENT: distended, guarding, mass, organolmegaly, rebound, tenderness Rectal exam: PRESENT: deferred Musculoskeletal exam: PRESENT: other - Right hip: Extremity short/externally rotated. Positive logroll. Moderate thigh swelling without change, intact plantarflexion/dorsiflexion. No sensory deficits. No calf tenderness. Neurological exam: PRESENT: alert, awake, oriented to person, oriented to place, oriented to time, oriented to situation, CN II-XII grossly intact. ABSENT: motor sensory deficit Psychiatric exam: PRESENT: appropriate affect, normal mood. ABSENT: homicidal ideation, suicidal ideation Skin exam: PRESENT: dry, intact, warm. ABSENT: cyanosis, rash Results Laboratory Results: 11/16/18 03:38 11/16/18 03:38 11/16/18 11/16/18 11/16/18 03:38 03:38 03:38 WBC 20.7 H RBC 3.87 Hgb 12.4 Hct 37.7 MCV 97 MCH 31.9 MCHC 32.8 RDW 14.1 H Plt Count 306 Seg Neutrophils % Not Reportable Lymphocytes % Not Reportable Monocytes % Not Reportable Eosinophils % Not Reportable Basophils % Not Reportable Absolute Neutrophils Not Reportable Absolute Lymphocytes Not Reportable Absolute Monocytes Not Reportable Absolute Eosinophils Not Reportable Absolute Basophils Not Reportable Sodium 139.0 Potassium 3.8 Chloride 103 Carbon Dioxide 25 Anion Gap 11 BUN 23 H Creatinine 0.77 Est GFR ( Amer) > 60 Est GFR (Non-Af Amer) > 60 Glucose 216 H Calcium 9.3 Total Bilirubin 0.5 AST 31 ALT 20 Alkaline Phosphatase 65 Total Protein 7.1 Albumin 4.2 TSH 7.93 H Free T4 1.61 Free T3 pg/mL 4.19 Impressions: Femur X-Ray 11/16/18 03:31 IMPRESSION: Intertrochanteric fracture deformity better seen on dedicated pelvis x-ray. Osteopenia. No distal femur fracture copyright 2010 [employer]- All Rights Reserved Pelvis X-Ray 11/16/18 03:31 IMPRESSION: 1. Displaced intertrochanteric fracture of the proximal right femur with acute angulation of the fracture fragments. 2. Bilateral iliac artery stents are noted. Status: Image reviewed by me - I have reviewed patient's radiographs which demonstrate comminuted proximal intertrochanteric hip fracture with varus disp lacement. Assessment & Plan - Diagnosis (1) Closed intertrochanteric fracture of right femur Qualifiers: Encounter type: initial encounter Fracture alignment: displaced Qualified Code(s): S72.141A - Displaced intertrochanteric fracture of right femur, initial encounter for closed fracture Is this a current diagnosis for this admission?: Yes Plan: Patient sustained an intertrochanteric hip fracture. Today we discussed treatment options including operative intervention. Given patient is a community ambulator would recommend operative treatment which includes cephalo- medullary nail right hip. Risks and benefits of the surgical procedure have been explained to the patient. Patient is verbalized understanding consented for surgical procedure. Will proceed with operative intervention on 11/17/2018 once patient received 24 hours of antibiotics for her UTI. I have discussed the case with the hospitalist who deems patient medically optimized for operative treatment and no further treatment required. Risk of the operation were explained including anesthetic complications, excessive bleeding, infection, injury to surrounding nerves, vessels and tendons, bruising, healing difficulties, scar formation, hardware complication, posttraumatic arthritis and any unforseen complication.
[2018-11-16] MEDS: ONDANSETRON HCL INJ/PF 4 MG/2 ML SDV IV PRN (11:28)
[2018-11-16] MEDS: CEFTRIAXONE SODIUM 1,000 MG in DEXTROSE 5%-WATER 50 ML IV SCH (11:29)
--- NOTE | 2018-11-16 12:25 | RADIOLOGY REPORT (SQ) ---
EXAM DESCRIPTION: CHEST SINGLE VIEW COMPLETED DATE/TIME: 11/16/2018 10:18 am REASON FOR STUDY: Preop, leukocytosis COMPARISON: 06/22/2014 NUMBER OF VIEWS: One view. TECHNIQUE: Single frontal radiographic view of the chest acquired. LIMITATIONS: None. FINDINGS: LUNGS AND PLEURA: Partial right pneumonectomy. No opacities, masses or pneumothorax. No p leural effusion. Attenuated blood vessels and flattened felicita-diaphragms. MEDIASTINUM AND HILAR STRUCTURES: No masses. Contour normal. HEART AND VASCULAR STRUCTURES: Heart normal in size. Normal vasculature. BONES: No acute findings. HARDWARE: None in the chest. OTHER: No other significant finding. IMPRESSION: COPD. NO ACUTE RADIOGRAPHIC FINDING IN THE CHEST. TECHNICAL DOCUMENTATION: JOB ID: [id number] [employer]- All Rights Reserved Reading location - IP/workstation name: [email or web address]
--- NOTE | 2018-11-16 17:03 | EKG REPORT ---
SEVERITY:- NORMAL ECG - SINUS RHYTHM : Confirmed by: Jasmina Garibay MD 16-Nov-2018 17:02:36
[2018-11-16 21:15] LABS: APPEARANCE,URINE CLEAR; BILIRUBIN,URINE NEGATIVE (NEGATIVE); COLOR,URINE YELLOW; GLUCOSE, URINE NEGATIVE (NEGATIVE); KETONES,URINE NEGATIVE (NEGATIVE); LEUKOCYTE ESTERASE,URINE NEGATIVE (NEGATIVE); NITRITE,URINE NEGATIVE (NEGATIVE); PROTEIN,URINE NEGATIVE (NEGATIVE); URINE SPECIFIC GRAVITY 1.011; UROBILINOGEN,URINE NEGATIVE mg/dL (<2.0)
[2018-11-17] MEDS: ONDANSETRON HCL INJ/PF 4 MG/2 ML SDV IV PRN ×2 (00:09→14:44)
[2018-11-17] MEDS: IPRATROPIUM BROMIDE 0.02% NEB 0.5 MG/2.5 ML AMPUL NEB SCH ×3 (00:14→15:48)
[2018-11-17] MEDS: LEVALBUTEROL HCL NEB 1.25 MG/3 ML AMPUL NEB SCH ×3 (00:15→15:48)
[2018-11-17] MEDS: ACETAMINOPHEN 325 MG TABLET PO PRN (01:28)
[2018-11-17] MEDS: MORPHINE SULFATE 10 MG/ML INJ IV PRN (01:37)
[2018-11-17] MEDS: RINGERS SOLUTION,LACTATED 1,000 ML IV PRN ×4 (01:49→22:49)
[2018-11-17 05:25] LABS: HEMATOCRIT 29.6 % (36.0-47.0); MEAN CORPUSCULAR HEMOGLOBIN 32.6 pg (27.0-33.4); MEAN CORPUSCULAR HGB CONC 33.9 g/dL (32.0-36.0); MEAN CORPUSCULAR VOLUME 96 fl (80-97); PLATELET COUNT 174 10^3/uL (150-450); RED BLOOD COUNT 3.08 10^6/uL (3.72-5.28); RED CELL DISTRIBUTION WIDTH 14.2 % (11.5-14.0); WHITE BLOOD COUNT 7.4 10^3/uL (4.0-10.5)
[2018-11-17 05:36] LABS: HEMOGLOBIN 10.1 g/dL (12.0-15.5)
[2018-11-17 05:49] LABS: BLOOD UREA NITROGEN 18 mg/dL (7-20); CALCIUM 8.4 mg/dL (8.4-10.2); CHOLESTEROL 132.75 mg/dL (0-200); GLUCOSE 132 mg/dL (75-110); POTASSIUM 4.2 mmol/L (3.6-5.0); TRIGLYCERIDES 74 mg/dL (<150)
[2018-11-17 05:54] LABS: ANION GAP 6 (5-19); CARBON DIOXIDE 28 mmol/L (22-30); CHLORIDE 104 mmol/L (98-107); SODIUM 137.7 mmol/L (137-145)
[2018-11-17 06:00] LABS: DIRECT LDL 57 mg/dL (<100)
[2018-11-17] MEDS ORDERED: MORPHINE SULFATE 10 MG/ML INJ IV ONE (07:00)
[2018-11-17] MEDS: BUDESONIDE NEB 0.5 MG/2 ML AMPUL NEB SCH ×2 (08:10→20:56)
[2018-11-17] MEDS ORDERED: MIDAZOLAM 2 MG/2 ML INJ ONE (10:04)
[2018-11-17] MEDS ORDERED: FENTANYL CITRATE INJ/PF 100 MCG/2 ML AMPUL ONE (10:04)
[2018-11-17] MEDS ORDERED: EPHEDRINE SULFATE INJ 50 MG/1 ML AMPULE ONE (10:04)
[2018-11-17] MEDS ORDERED: BUPIVACAINE HCL 0.5 % INJ/PF 30 ML SDV ONE (10:20)
[2018-11-17] MEDS ORDERED: PROPOFOL INJ 200 MG/20 ML VIAL IV ONE (10:24)
[2018-11-17] MEDS: CEFTRIAXONE SODIUM 1,000 MG in DEXTROSE 5%-WATER 50 ML IV SCH (11:00)
--- NOTE | 2018-11-17 11:55 | Operative Report ---
Operative Report DATE OF SURGERY: 11/17/18 PREOPERATIVE DIAGNOSIS: Right proximal peritrochanteric fracture POSTOPERATIVE DIAGNOSIS: Same OPERATION: Cephalo-medullary nail right peritrochanteric fracture SURGEON: MAGNOLIA SKELTON ANESTHESIA: Spinal COMPLICATIONS: None ESTIMATED BLOOD LOSS: 50cc PROCEDURE: Indication for above procedure: 83-year-old community ambulator was at home when she tripped while getting up from her reclining chair. Patient had pain and inability to weight-bear was brought to emergency room where x-rays demonstrated intertrochanteric fracture. Patient was seen and evaluated by the hospitalist, medically optimized for operative intervention at that point decision was made to proceed with operative treatment. Risk and benefits were explained to the patient and her daughter who verbalized understanding and consented for surgical procedure. Procedure in detail: Patient was seen and evaluated in the preoperative holding area. The right lower extremity was initialized and marked. Patient received 2 g Ancef IV for bacterial prophylaxis. Patient was taken back to the operative room where transferred operative table. Patient was placed under spinal anesthesia. Once adequate anesthetized he was carefully placed onto the hip positioner the nonoperative lower extremity and bilateral upper extremities were carefully padded and the peroneal nerve was padded and on the nonoperative extremity. The operative extremity was placed in a traction along with adduction and internal rotation. A surgical team debriefing was performed ensuring all instrumentation was available, the surgical procedure was discussed with possible concerns reviewed. A timeout was done identifying correct patient, procedure and extremity everyone in attendance agree with this and verbalized no concerns. Reduction maneuver with the use of the hip traction table were done and C-arm fluoroscopy was used to confirm optimal reduction of the intertrochanteric fracture. Once this was confirmed the lower extremity was prepped with chlor prep and draped in a sterile fashion. At this point a small skin incision was made proximal to the greater trochanter. The guidewire was placed onto the tip of the trochanter advanced down to the level of the lesser trochanter. AP and lateral fluoroscopy was used to confirm appropriate placement of the guidewire. The skin incision was then extended and the underlying fascia opened up carefully to the tip of the greater trochanter. The entry reamer was then used and advanced to the level of the lesser trochanter. At this point Kellie short gamma nail was opened up and placed onto the aiming arm and advanced down the shaft of the femur. AP and lateral fluoroscopy was then used to confirm appropriate placement of the nail. Then turned my attention to the compression screw fixation in the femoral head. The trochars were advanced to the skin, a skin incision was made, careful dissection down to the fascia to the lateral femoral cortex was then partaken. The guidewire was then used and placed in the center center position with the tip apex distance less than 25 mm. Once this position was obtained the size of the compression screw was measured. AP and lateral fluoroscopy used to confirm appropriate placement of our guide wire. The step reamer was used to drill up through the femoral neck and head. I then carefully advanced the compression screw into position. AP and lateral fluoroscopy was done to confirm appropriate placement of the compression screw this was then locked into position proximally. The compression screw was then disengaged from its mounting device and the guidewire was removed. Lastly proceeded with locking of the nail distally. Using the aiming arm the trochars were advanced to the skin, a skin incision was made. Careful dissection done with a hemostat to the lateral cortex of the femur. I then drilled the near and far cortices. Measured the appropriate sized distal locking screw and secured it into position. At this point AP/lateral and oblique views of the proximal and distal aspect of the nail were taken confirming appropriate placement of the compression screw, distal locking screw and intramedullary nail. Once this was confirmed I proceeded with copious irrigation of the proximal and distal wounds. The deep tissues were closed with 0 Vicryl suture, subcutaneous tissues were closed with 3-0 Monocryl suture. The skin was closed a running 3-0 subcuticular Monocryl suture and reinforced with Dermabond & Steri-Strips. A dressing was placed. Sponge counts, instrument counts and needle counts were correct. Patient was then transferred from the operating room table to the operating room stretcher. The was no intraoperative complications patient tolerated procedure well was stable to PACU. Implants used: Kellie 11 x 180 mm 125 Short Gamma Nail with a 90 mm compression screw Postoperative plan: Patient will begin physical therapy on postop day #1. Heparin daily for DVT prophylaxis
[2018-11-17] MEDS ORDERED: DIPHENHYDRAMINE HCL 50 MG/ML VIAL IV PRN (12:11)
[2018-11-17] MEDS ORDERED: MEPERIDINE HCL/PF INJ 25 MG/1 ML DISP.SYRIN IV PRN (12:11)
[2018-11-17] MEDS ORDERED: FENTANYL CITRATE INJ/PF 100 MCG/2 ML AMPUL IV PRN ×3 (12:11)
[2018-11-17] MEDS ORDERED: PROMETHAZINE HCL INJ 25 MG/1 ML VIAL IV PRN ×2 (12:11)
--- NOTE | 2018-11-17 12:40 | RADIOLOGY REPORT (SQ) ---
EXAM DESCRIPTION: HIP IN OPERATING RM COMPLETED DATE/TIME: 11/17/2018 11:46 am REASON FOR STUDY: HIP NAILING COMPARISON: None. FLUOROSCOPY TIME: 1.0 minutes 4 images saved to PACS. TECHNIQUE: Intra-operative images acquired during surgical procedure to evaluate progress. NUMBER OF IMAGES: 4 LIMITATIONS: None. FINDINGS: Doug and dynamic hip compression screw fixation intertrochanteric femoral neck fracture. IMPRESSION: IMAGE(S) OBTAINED DURING PROCEDURE. COMMENT: Quality ID [id number]: Final reports for procedures using fluoroscopy that document radiation exp osure indices, or exposure time and number of fluorographic images (if radiation exposure indices are not available) Please consult full operative report of the attending physician for description of the procedure. TECHNICAL DOCUMENTATION: JOB ID: [id number] [employer]- All Rights Reserved Reading location - IP/workstation name: [email or web address]
[2018-11-17] MEDS: FAMOTIDINE INJ/PF 20 MG/2 ML SDV IV SCH ×2 (13:08→21:20)
[2018-11-17] MEDS ORDERED: PHENYLEPHRINE HCL INJ/PF 10 MG/1 ML SDV ONE (13:51)
[2018-11-17] MEDS: HEPARIN SOD (PORCINE) 5,000 UNIT/ML 1 ML SYRINGE SUBCUT SCH (14:44)
[2018-11-17] MEDS: OXYCODONE-ACETAMINOPHEN 5-325 MG TABLET PO PRN ×2 (17:17→21:20)
[2018-11-18] MEDS: LEVALBUTEROL HCL NEB 1.25 MG/3 ML AMPUL NEB SCH ×3 (00:44→16:00)
[2018-11-18] MEDS: IPRATROPIUM BROMIDE 0.02% NEB 0.5 MG/2.5 ML AMPUL NEB SCH ×3 (00:44→16:00)
[2018-11-18] MEDS: OXYCODONE-ACETAMINOPHEN 5-325 MG TABLET PO PRN ×2 (03:52→11:08)
[2018-11-18] MEDS: RINGERS SOLUTION,LACTATED 1,000 ML IV PRN ×4 (03:55→20:16)
[2018-11-18 07:05] LABS: HEMATOCRIT 23.8 % (36.0-47.0); HEMOGLOBIN 8.1 g/dL (12.0-15.5); MEAN CORPUSCULAR HEMOGLOBIN 32.6 pg (27.0-33.4); MEAN CORPUSCULAR VOLUME 96 fl (80-97); PLATELET COUNT 148 10^3/uL (150-450); RED BLOOD COUNT 2.48 10^6/uL (3.72-5.28); RED CELL DISTRIBUTION WIDTH 13.9 % (11.5-14.0); WHITE BLOOD COUNT 5.3 10^3/uL (4.0-10.5)
[2018-11-18 07:27] LABS: BLOOD UREA NITROGEN 10 mg/dL (7-20); CALCIUM 7.7 mg/dL (8.4-10.2); CARBON DIOXIDE 32 mmol/L (22-30); CHLORIDE 103 mmol/L (98-107); GLUCOSE 118 mg/dL (75-110)
[2018-11-18 07:33] LABS: SODIUM 137.1 mmol/L (137-145)
[2018-11-18 07:38] LABS: ANION GAP 2 (5-19)
--- NOTE | 2018-11-18 07:58 | PDOC PROGRESS REPORT ---
Subjective Progress Note for:: 11/18/18 Subjective:: Patient lying in bed calmly. States pain is currently controlled. No issues overnight. Denies chest pain or shortness of breath. Reason For Visit: INTERTROCHANTERIC FRACTURE OF RIGHT HIP Physical Exam Vital Signs: Temp Pulse Resp BP Pulse Ox 98.2 F 79 16 122/54 L 100 11/18/18 04:09 11/18/18 07:00 11/18/18 04:09 11/18/18 04:09 11/18/18 04:09 Intake & Output 11/17/18 11/18/18 11/19/18 06:59 06:59 06:59 Intake Total 2322 4850 Output Total 875 1850 Balance 1447 3000 Weight 55.9 kg 59.7 kg Musculoskeletal exam: PRESENT: other - Right hip: Dressing clean/dry/intact no erythema or drainage. Moderate thigh swelling without change, intact plantarflexion/dorsiflexion. No sensory deficits. No calf tenderness. Results Laboratory Results: 11/18/18 05:58 11/18/18 05:58 11/17/18 11/18/18 11/18/18 09:21 05:58 05:58 WBC 5.3 RBC 2.48 L Hgb 8.1 L Hct 23.8 L MCV 96 MCH 32.6 MCHC 34.0 RDW 13.9 Plt Count 148 L Sodium 137.1 Potassium 4.0 Chloride 103 Carbon Dioxide 32 H Anion Gap 2 L BUN 10 Creatinine 0.57 Est GFR ( Amer) > 60 Est GFR (Non-Af Amer) > 60 Glucose 118 H Calcium 7.7 L Magnesium 1.3 L Blood Type A POSITIVE Antibody Screen NEGATIVE Impressions: Femur X-Ray 11/16/18 03:31 IMPRESSION: Intertrochanteric fracture deformity better seen on dedicated pelvis x-ray. Osteopenia. No distal femur fracture copyright 2010 [employer]- All Rights Reserved Pelvis X-Ray 11/16/18 03:31 IMPRESSION: 1. Displaced intertrochanteric fracture of the proximal right femur with acute angulation of the fracture fragments. 2. Bilateral iliac artery stents are noted. Chest X-Ray 11/16/18 09:15 IMPRESSION: COPD. NO ACUTE RADIOGRAPHIC FINDING IN THE CHEST. Hip X-Ray 11/17/18 00:00 IMPRESSION: IMAGE(S) OBTAINED DURING PROCEDURE. Assessment & Plan - Diagnosis (1) Closed intertrochanteric fracture of right femur Qualifiers: Encounter type: subsequent encounter Is this a current diagnosis for this admission?: Yes Plan: Postop day #1 status post right hip cephalo-medullary nail 1. Physical therapy weightbearing as tolerated 2. Pain control 3. Acute blood loss anemia current H&H 8.05/29.8 we will continue to monitor 4. Discharge planning patient will require intermediate facility when bed available and patient medically stable
[2018-11-18] MEDS: HEPARIN SOD (PORCINE) 5,000 UNIT/ML 1 ML SYRINGE SUBCUT SCH ×4 (08:22→23:10)
[2018-11-18] MEDS: BUDESONIDE NEB 0.5 MG/2 ML AMPUL NEB SCH ×2 (09:01→20:01)
[2018-11-18] MEDS: FAMOTIDINE INJ/PF 20 MG/2 ML SDV IV SCH ×3 (09:03→23:09)
--- NOTE | 2018-11-18 10:37 | Progress Note Acknowledgement ---
Progress Note Acknowledgement Progess Note Acknowledgement: I, the undersigned member of the medical staff with appropriate privileges and with supervisory authority over [Robert Yuen], a dependent practice allied health professional, acknowledge that I have reviewed the progress notes entered on this patient, and in my professional judgment believe that the assessment made and/or any care evidenced was appropriate
--- NOTE | 2018-11-18 10:38 | Progress Note Acknowledgement ---
Progress Note Acknowledgement Progess Note Acknowledgement: I, the undersigned member of the medical staff with appropriate privileges and with supervisory authority over [ ], a dependent practice allied health professional, acknowledge that I have reviewed the progress notes entered on this patient, and in my professional judgment believe that the assessment made and/or any care evidenced was appropriate
--- NOTE | 2018-11-18 10:41 | PDOC PROGRESS REPORT ---
Subjective Progress Note for:: 11/18/18 Subjective:: Ms. Rojas is a very pleasant 83-year-old female who sustained a fall with subsequent right intertrochanteric fracture. Patient was seen by Dr. morris this morning. Labs have returned showing a leukocytosis of 20,000. I am going to get a stat chest film UA blood cultures and start patient on Rocephin. 11/17/2018-just returned from surgery. Continued pain. Morphine was too strong for the patient patient request oral pain medications. I placed patient on Pe rcocet 1 5 mg tablet every 4 hours as needed 11/18/2018-patient continues postoperatively with no complications. Percocet is controlling pain well. Patient will be seen by PT today. No complaints this morning. Reason For Visit: INTERTROCHANTERIC FRACTURE OF RIGHT HIP Physical Exam Vital Signs: Temp Pulse Resp BP Pulse Ox 98.2 F 81 18 122/54 L 95 11/18/18 04:09 11/18/18 09:02 11/18/18 09:02 11/18/18 04:09 11/18/18 09:02 Intake & Output 11/17/18 11/18/18 11/19/18 06:59 06:59 06:59 Intake Total 2322 4850 1000 Output Total 875 1850 Balance 1447 3000 1000 Weight 55.9 kg 59.7 kg General appearance: PRESENT: no acute distress, well-developed, well-nourished Neck exam: ABSENT: carotid bruit, JVD, lymphadenopathy, thyromegaly Respiratory exam: PRESENT: clear to auscultation manuel. ABSENT: rales, rhonchi, wheezes Cardiovascular exam: PRESENT: RRR. ABSENT: diastolic murmur, rubs, systolic murmur Pulses: PRESENT: normal dorsalis pedis pul Vascular exam: PRESENT: normal capillary refill GI/Abdominal exam: PRESENT: normal bowel sounds, soft. ABSENT: distended, guarding, mass, organolmegaly, rebound, tenderness Extremities exam: PRESENT: other Musculoskeletal exam: PRESENT: other - Right hip was clean dry intact surgical dressing. Neurological exam: PRESENT: alert, awake, oriented to person, oriented to place, oriented to time, oriented to situation, CN II-XII grossly intact. ABSENT: motor sensory deficit Psychiatric exam: PRESENT: appropriate affect, normal mood. ABSENT: homicidal ideation, suicidal ideation Skin exam: PRESENT: dry, intact, warm. ABSENT: cyanosis, rash Results Laboratory Results: 11/18/18 05:58 11/18/18 05:58 11/18/18 11/18/18 05:58 05:58 WBC 5.3 RBC 2.48 L Hgb 8.1 L Hct 23.8 L MCV 96 MCH 32.6 MCHC 34.0 RDW 13.9 Plt Count 148 L Sodium 137.1 Potassium 4.0 Chloride 103 Carbon Dioxide 32 H Anion Gap 2 L BUN 10 Creatinine 0.57 Est GFR ( Amer) > 60 Est GFR (Non-Af Amer) > 60 Glucose 118 H Calcium 7.7 L Magnesium 1.3 L 11/16/18 17:15 [facility] Catheter Urine Culture - Final Mixed Urogenital Angely Impressions: Femur X-Ray 11/16/18 03:31 IMPRESSION: Intertrochanteric fracture deformity better seen on dedicated pelvis x-ray. Osteopenia. No distal femur fracture copyright 2010 [employer]- All Rights Reserved Pelvis X-Ray 11/16/18 03:31 IMPRESSION: 1. Displaced intertrochanteric fracture of the proximal right femur with acute angulation of the fracture fragments. 2. Bilateral iliac artery stents are noted. Chest X-Ray 11/16/18 09:15 IMPRESSION: COPD. NO ACUTE RADIOGRAPHIC FINDING IN THE CHEST. Hip X-Ray 11/17/18 00:00 IMPRESSION: IMAGE(S) OBTAINED DURING PROCEDURE. Assessment and Plan - Diagnosis (1) Closed intertrochanteric fracture of right femur Qualifiers: Encounter type: subsequent encounter Is this a current diagnosis for this admission?: Yes Plan: Patient be treated by Dr. Forde, who has been consulted for definitive management and care of her fracture. She received morphine sulfate 2 to 4 mg IV every 2 hours on a as needed basis for pain per a sliding scale. A daily CBC will be included in part of patient's management both pre-and postoperatively. 11/17/2018-patient underwent open reduction internal fixation by Dr. Forde this morning. Patient returned to her room with clean dry intact surgical dressing i n place. Continue to follow 11/18/2018-physical therapy today with weightbearing. We will continue to follow along with orthopedics. (2) Hypertension Qualifiers: Hypertension type: essential hypertension Qualified Code(s): I10 - Essential (primary) hypertension Is this a current diagnosis for this admission?: Yes Plan: Patient will be continued on her usual antihypertensive medication as soon as she is back to taking oral medications. In the interim hydralazine 20 mg IV every 4 hours and or metoprolol 5 mg IV every 4 hours will be used to maintain a systolic blood pressure less than 160 and a diastolic blood pressure less than 100. A daily metabolic profile and magnesium level will be obtained as part of the ongoing management of her hypertension. Patient's blood pressure be monitored closely throughout her hospital course. A thyroid profile will be obtained as part of the assessment of patient's hypertension. 11/17/2018-stable at this time continue current medication regimen 11/18/2018-stable (3) Hyperlipidemia Qualifiers: Hyperlipidemia type: unspecified Qualified Code(s): E78.5 - Hyperlipidemia, unspecified Is this a current diagnosis for this admission?: Yes (4) Coronary artery disease Qualifiers: Coronary Disease-Associated Artery/Lesion type: [place] artery [place] vs. transplanted heart: [place] heart Associated angina: without angina Qualified Code(s): I25.10 - Atherosclerotic heart disease of [place] coronary artery without angina pectoris Is this a current diagnosis for this admission?: Yes (5) Chronic obstructive pulmonary disease Qualifiers: COPD type: unspecified COPD Qualified Code(s): J44.9 - Chronic obstructive pulmonary disease, unspecified Is this a current diagnosis for this admission?: Yes Plan: Patient will be continued on her usual COPD medications when she is able to resume oral intake. In the interim she will be treated with nebulizer therapy using Xopenex, Atrovent and Pulmicort. Her oxygen saturation and respiratory status will be monitored closely throughout hospital course. 11/17/2018-continue nebulizer therapy and oxygen as needed. Continue to monitor closely as she just returned from surgery. 11/18/2018- (6) Diabetes mellitus type 2 in nonobese Is this a current diagnosis for this admission?: Yes (7) Leukocytosis Is this a current diagnosis for this admission?: Yes Plan: 11/17/2018-on admission patient had a white count of 20,000. This was suspected to be a UTI his chest x-ray was normal. Urine shows no leukocyte esterase or nitrates. I have DC'd Mohini at this time. 11/18/2018-resolved - Time Time Spent with patient: 15-24 minutes - Inpatient Certification Based on my medical assessment, after consideration of the patient's comorbidities, presenting symptoms, or acuity I expect that the services needed warrant INPATIENT care.: Yes I certify that my determination is in accordance with my understanding of Medicare's requirements for reasonable and necessary INPATIENT services [42 CFR 412.3e].: Yes Medical Necessity: Other - Continues postoperative phase. Physical therapy pain control
[2018-11-18] MEDS: ONDANSETRON HCL INJ/PF 4 MG/2 ML SDV IV PRN (10:54)
[2018-11-18] MEDS: ACETAMINOPHEN 325 MG TABLET PO PRN (21:30)
[2018-11-18] MEDS ORDERED: KETOROLAC TROMETHAMINE INJ/PF 30 MG/1 ML SDV ONE (23:05)
[2018-11-18] MEDS ORDERED: KETOROLAC TROMETHAMINE INJ/PF 30 MG/1 ML SDV IV ONE (23:30)
[2018-11-19] MEDS: LEVALBUTEROL HCL NEB 1.25 MG/3 ML AMPUL NEB SCH ×3 (00:01→15:46)
[2018-11-19] MEDS: IPRATROPIUM BROMIDE 0.02% NEB 0.5 MG/2.5 ML AMPUL NEB SCH ×3 (00:01→15:46)
[2018-11-19] MEDS: RINGERS SOLUTION,LACTATED 1,000 ML IV PRN (01:20)
[2018-11-19 05:06] LABS: HEMATOCRIT 24.9 % (36.0-47.0); HEMOGLOBIN 8.5 g/dL (12.0-15.5); MEAN CORPUSCULAR HEMOGLOBIN 32.9 pg (27.0-33.4); MEAN CORPUSCULAR VOLUME 97 fl (80-97); PLATELET COUNT 160 10^3/uL (150-450); RED BLOOD COUNT 2.57 10^6/uL (3.72-5.28); RED CELL DISTRIBUTION WIDTH 13.8 % (11.5-14.0); WHITE BLOOD COUNT 6.8 10^3/uL (4.0-10.5)
[2018-11-19 05:24] LABS: ANION GAP 5 (5-19); BLOOD UREA NITROGEN 9 mg/dL (7-20); CARBON DIOXIDE 30 mmol/L (22-30); CHLORIDE 104 mmol/L (98-107); GLUCOSE 108 mg/dL (75-110); POTASSIUM 4.1 mmol/L (3.6-5.0); SODIUM 138.5 mmol/L (137-145)
[2018-11-19] MEDS: HEPARIN SOD (PORCINE) 5,000 UNIT/ML 1 ML SYRINGE SUBCUT SCH ×3 (05:28→23:01)
--- NOTE | 2018-11-19 07:52 | PDOC PROGRESS REPORT ---
Subjective Progress Note for:: 11/19/18 Subjective:: Patient lying in bed calmly. States pain is currently controlled. No issues overnight. Denies chest pain or shortness of breath. Requires moderate assistance with physical therapy. Reason For Visit: INTERTROCHANTERIC FRACTURE OF RIGHT FEMUR Physical Exam Vital Signs: Temp Pulse Resp BP Pulse Ox 98.7 F 106 H 18 138/37 H 96 11/18/18 22:57 11/19/18 07:00 11/19/18 04:53 11/19/18 04:53 11/19/18 04:53 Intake & Output 11/18/18 11/19/18 11/20/18 06:59 06:59 06:59 Intake Total 5450 3767 Output Total 2450 2375 Balance 3000 1392 Weight 59.7 kg 59.5 kg Musculoskeletal exam: PRESENT: other - Left hip: Dressing clean/dry/intact no erythema or drainage. Moderate thigh swelling without change, intact plan tarflexion/dorsiflexion. No sensory deficits. No calf tenderness. Results Laboratory Results: 11/19/18 03:57 11/19/18 03:57 11/19/18 11/19/18 03:57 03:57 WBC 6.8 RBC 2.57 L Hgb 8.5 L Hct 24.9 L MCV 97 MCH 32.9 MCHC 34.0 RDW 13.8 Plt Count 160 Sodium 138.5 Potassium 4.1 Chloride 104 Carbon Dioxide 30 Anion Gap 5 BUN 9 Creatinine 0.57 Est GFR ( Amer) > 60 Est GFR (Non-Af Amer) > 60 Glucose 108 Calcium 8.0 L Magnesium 1.4 L 11/16/18 17:15 [facility] Catheter Urine Culture - Final Mixed Urogenital Angely Impressions: Femur X-Ray 11/16/18 03:31 IMPRESSION: Intertrochanteric fracture deformity better seen on dedicated pelvis x-ray. Osteopenia. No distal femur fracture copyright 2011 [employer]- All Rights Reserved Pelvis X-Ray 11/16/18 03:31 IMPRESSION: 1. Displaced intertrochanteric fracture of the proximal right femur with acute angulation of the fracture fragments. 2. Bilateral iliac artery stents are noted. Chest X-Ray 11/16/18 09:15 IMPRESSION: COPD. NO ACUTE RADIOGRAPHIC FINDING IN THE CHEST. Hip X-Ray 11/17/18 00:00 IMPRESSION: IMAGE(S) OBTAINED DURING PROCEDURE. Assessment & Plan - Diagnosis (1) Closed intertrochanteric fracture of right femur Qualifiers: Encounter type: subsequent encounter Is this a current diagnosis for this admission?: Yes Plan: Postop day #1 status post right hip cephalo-medullary nail 1. Physical therapy weightbearing as tolerated 2. Pain control 3. Acute blood loss anemia current hematocrit 24.9 we will continue to monitor 4. DC [facility] today 5. Discharge planning patient will require senior care facility when bed available and patient medically stable
[2018-11-19] MEDS: BUDESONIDE NEB 0.5 MG/2 ML AMPUL NEB SCH ×2 (08:18→20:00)
[2018-11-19] MEDS ORDERED: CALCIUM GLUCONATE 1000 MG/10 ML INJ IV ONE (09:00)
[2018-11-19] MEDS ORDERED: MAGNESIUM SULFATE/D5W 1 GM/100 ML RTUPB IV ONE (09:00)
[2018-11-19] MEDS: FAMOTIDINE INJ/PF 20 MG/2 ML SDV IV SCH ×2 (09:31→21:23)
[2018-11-19] MEDS: ASPIRIN 81 MG TABLET, ENT COATED PO SCH (09:31)
[2018-11-19] MEDS: SERTRALINE HCL 50 MG TABLET PO SCH (09:31)
[2018-11-19] MEDS ORDERED: (PENDING PHARMACY ID) (Sertraline Hcl [Zoloft] 25 MG) PO SCH (10:00)
--- NOTE | 2018-11-19 10:40 | RADIOLOGY REPORT (SQ) ---
EXAM DESCRIPTION: CTA CHEST COMPLETED DATE/TIME: 11/19/2018 10:23 am REASON FOR STUDY: hypoxia hx hip fracture COMPARISON: 12/02/2015 TECHNIQUE: CT scan of the chest performed using helical scanning technique with dynamic intravenous contrast injection. Images reviewed with lung, soft tissue and bone windows. Reconstructed coronal and sagittal MPR images reviewed. Additional 3 dimensional post-processing performed to develop Maximal Intensity Projection images (VT P). All images stored on PACS. All CT scanners at this facility use dose modulation, iterative reconstruction, and/or weight based d osing when appropriate to reduce radiation dose to as low as reasonably achievable (ALARA). [facility]: Dose Right [facility]: CareDose [facility]: Dose Right [facility]: Teradose 4D [facility]: PsyQic CONTRAST TYPE AND DOSE: contrast/concentration: Isovue 350.00 mg/ml; Total Contrast Delivered: 46.0 ml; Total Saline Delivered: 66.0 ml Contrast bolus optimized for the pulmonary arteries. Not diagnostic for the aorta. RENAL FUNCTION: Creatinine 0.57 RADIATION DOSE: CT Rad equipment meets quality standard of care and radiation dose reduction techniq ues were employed. CTDIvol: 4.8 - 7.5 mGy. DLP: 170 mGy-cm. . LIMITATIONS: None. FINDINGS: LUNGS AND PLEURA: Mild to moderate bilateral pleural effusions. There patchy bilateral lo wer lobe areas of consolidation and ground-glass attenuation. No pneumothorax. No discrete pulmonar y mass. AORTA AND GREAT VESSELS: Aortic atherosclerosis without aneurysm. Evidence of prior aortic valvular prostheses. No dissection. HEART: No significant pericardial effusion. Normal heart size. Scattered three-vessel coronary athe rosclerosis. PULMONARY ARTERIES: No emboli visualized in the main pulmonary arteries or the segmental branches. HILAR AND MEDIASTINAL STRUCTURES: No identified masses or abnormal nodes. HARDWARE: Aortic valvular prostheses. UPPER ABDOMEN: No significant findings. Limited exam. THYROID AND OTHER SOFT TISSUES: No masses. No adenopathy. BONES: No acute bony abnormality. No discrete lytic or blastic osseous lesions. Unchanged superior endplate deformity of T10. 3D MIPS: Confirm above findings. OTHER: No other significant finding. IMPRESSION: 1. No evidence of pulmonary embolus. 2. Arwy-wo-wcfcwpwp bilateral effusions with bibasilar atelectasis. Additional adjacent ground-glas s attenuation likely atelectasis or edema although infection is not entirely excluded. COMMENT: Quality ID # [id number]: Final reports with documentation of one or more dose reduction techniques (e.g., Automated exposure control, adjustment of the mA and/or kV according to patient size, use of iterative reconstruction technique) TECHNICAL DOCUMENTATION: JOB ID: [id number] [employer]- All Rights Reserved Reading location - IP[facility]workstation name: [email or web address]
[2018-11-19] MEDS ORDERED: (PENDING PHARMACY ID) (Brimonidine Tartrate [Alphagan P] 1 DROP) OU SCH ×2 (11:00→18:00)
[2018-11-19] MEDS ORDERED: (PENDING PHARMACY ID) (Latanoprost/Pf [Latanoprost 0.005% Eye Drop] 1 DROP) OU SCH (11:00)
[2018-11-19] MEDS: LATANOPROST 0.005% OPH SOLN 2.5 ML OU SCH (13:10)
--- NOTE | 2018-11-19 13:10 | PDOC PROGRESS REPORT ---
Subjective Progress Note for:: 11/19/18 Subjective:: MADELYN ANDERSON is a 83 year old female who presented to the emergency room via EMS with acute right hip pain. She admits tripping over some cords behind her couch causing her to fall, landing on her right side with the instantaneous onset of pain in her right hip area. She describes the pain as a constant, severe, sharp stabbing and grating pain in the right hip area, without radiation, worsened by any movement of her right lower extremity. She denies prior similar episodes and has not identified any additional aggravating or ameliorating factors for her hip pain. In the emergency room she was found to have a closed, displaced, intertrochanteric fracture of the right hip. She was subsequently admitted to the hospital for further evaluation and treatment. 11/19/2018. No acute events overnight, patient complaining of shortness of breath, increasing requirement for supplemental oxygen, currently 95% on 6 L FiO2 44%. I CTA negative for any PE but positive for bilateral pleural effusions. Denies any fever, chills, chest pain,, diarrhea, constipation or any urinary symptoms. Reason For Visit: INTERTROCHANTERIC FRACTURE OF RIGHT FEMUR Physical Exam Vital Signs: Temp Pulse Resp BP Pulse Ox 97.9 F 82 18 140/44 H 95 11/19/18 08:00 11/19/18 08:18 11/19/18 08:18 11/19/18 08:00 11/19/18 12:13 Intake & Output 11/18/18 11/19/18 11/20/18 06:59 06:59 06:59 Intake Total 5450 3767 1100 Output Total 2450 2375 Balance 3000 1392 1100 Weight 59.7 kg 59.5 kg General appearance: PRESENT: no acute distress, mild distress, well-developed, well-nourished Head exam: PRESENT: atraumatic, normocephalic Neck exam: ABSENT: carotid bruit, JVD, lymphadenopathy, thyromegaly Respiratory exam: PRESENT: decreased breath sounds, tachypnea. ABSENT: rales, rhonchi, wheezes GI/Abdominal exam: PRESENT: normal bowel sounds, soft. ABSENT: distended, guarding, mass, organolmegaly, rebound, tenderness Extremities exam: PRESENT: full ROM, tenderness - Right hip. Neurovascularly intact.. ABSENT: calf tenderness, clubbing, pedal edema Neurological exam: PRESENT: alert, awake, oriented to person, oriented to place, oriented to time, oriented to situation, CN II-XII grossly intact. ABSENT: motor sensory deficit Results Laboratory Results: 11/19/18 03:57 11/19/18 03:57 11/19/18 11/19/18 03:57 03:57 WBC 6.8 RBC 2.57 L Hgb 8.5 L Hct 24.9 L MCV 97 MCH 32.9 MCHC 34.0 RDW 13.8 Plt Count 160 Sodium 138.5 Potassium 4.1 Chloride 104 Carbon Dioxide 30 Anion Gap 5 BUN 9 Creatinine 0.57 Est GFR ( Amer) > 60 Est GFR (Non-Af Amer) > 60 Glucose 108 Calcium 8.0 L Magnesium 1.4 L 11/16/18 17:15 [facility] Catheter Urine Culture - Final Mixed Urogenital Angely Impressions: Femur X-Ray 11/16/18 03:31 IMPRESSION: Intertrochanteric fracture deformity better seen on dedicated pelvis x-ray. Osteopenia. No distal femur fracture copyright 2010 [employer]- All Rights Reserved Pelvis X-Ray 11/16/18 03:31 IMPRESSION: 1. Displaced intertrochanteric fracture of the proximal right femur with acute angulation of the fracture fragments. 2. Bilateral iliac artery stents are noted. Chest X-Ray 11/16/18 09:15 IMPRESSION: COPD. NO ACUTE RADIOGRAPHIC FINDING IN THE CHEST. Hip X-Ray 11/17/18 00:00 IMPRESSION: IMAGE(S) OBTAINED DURING PROCEDURE. Chest/Abdomen CTA 11/19/18 00:00 IMPRESSION: 1. No evidence of pulmonary embolus. 2. Bcub-au-cimojrnb bilateral effusions with bibasilar atelectasis. Additional adjacent ground-glass attenuation likely atelectasis or edema although infection is not entirely excluded. Assessment and Plan - Diagnosis (1) Acute respiratory failure with hypoxia Is this a current diagnosis for this admission?: Yes Plan: High risk for VTE due to underlying medical condition. CTA negative for any PE. Most likely due to pleural effusion, caused by aggressive volume resuscitation for underlying hypotension. Patient has been on IV fluids on top of taking IV p.o. 11/19/2018. CTA chest negative for any PE, positive for bilateral pleural effusion. DC IV fluids. Cautious diuresis guided by volume status and vitals. Strict in and out. (2) Chronic obstructive pulmonary disease Qualifiers: COPD type: unspecified COPD Qualified Code(s): J44.9 - Chronic obstructive pulmonary disease, unspecified Is this a current diagnosis for this admission?: Yes Plan: Not on home O2. Does not seem to be exacerbated except for hypoxia due to bilateral pleural effusion which could be due to aggressive volume resuscitation. Continue PRN DuoNeb's, LABA's/LAMA's, supplemental oxygen, PRN BiPAP. Outpatient pulmonology follow-up. (3) Closed intertrochanteric fracture of right femur Qualifiers: Encounter type: subsequent encounter Is this a current diagnosis for this admission?: Yes Plan: Postop day 1 status post right hip cephalo-medullary nail. Continue PT. Orthopedic surgery following, recommendations noted. Plan is to transfer to rehab. (4) Coronary artery disease Qualifiers: Coronary Disease-Associated Artery/Lesion type: [place] artery [place] vs. transplanted heart: [place] heart Associated angina: without angina Qualified Code(s): I25.10 - Atherosclerotic heart disease of [place] coronary artery without angina pectoris Is this a current diagnosis for this admission?: Yes Plan: Denies any anginal symptoms. Continue antiplatelets, statins, SALEEM, beta blockers. (5) Diabetes mellitus type 2 in nonobese Is this a current diagnosis for this admission?: Yes Plan: Well-controlled. Hemoglobin A1c 5.9. Continue diabetic diet, pre-meal insulin, sliding scale insulin, long-acting insulin, hypoglycemic protocol, Accu-Chek. Restart home meds upon discharge. Outpatient follow-up with PCP. (6) Hyperlipidemia Qualifiers: Hyperlipidemia type: unspecified Qualified Code(s): E78.5 - Hyperlipidemia, unspecified Is this a current diagnosis for this admission?: Yes Plan: Continue statins. LFTs WNL.
[2018-11-19] MEDS ORDERED: FUROSEMIDE INJ/PF 20 MG/2 ML SDV IV ONE ×2 (13:30)
[2018-11-19] MEDS: OXYCODONE-ACETAMINOPHEN 5-325 MG TABLET PO PRN ×2 (14:52→21:24)
[2018-11-19] MEDS: BRIMONIDINE TARTRATE OU SCH (21:23)
[2018-11-19] MEDS: LEVOTHYROXINE SODIUM 0.025 MG TABLET PO SCH (21:24)
[2018-11-19] MEDS ORDERED: BRIMONIDINE TARTRATE OU SCH (22:00)
[2018-11-20] MEDS: IPRATROPIUM BROMIDE 0.02% NEB 0.5 MG/2.5 ML AMPUL NEB SCH ×2 (00:17→07:34)
[2018-11-20] MEDS: LEVALBUTEROL HCL NEB 1.25 MG/3 ML AMPUL NEB SCH ×2 (00:17→07:34)
[2018-11-20] MEDS: OXYCODONE-ACETAMINOPHEN 5-325 MG TABLET PO PRN (02:43)
[2018-11-20 04:17] LABS: ABSOLUTE EOSINOPHILS # (AUTO) 0.1 10^3/uL (0.0-0.6); ABSOLUTE LYMPHOCYTES (AUTO) 0.5 10^3/uL (0.5-4.7); ABSOLUTE MONOCYTES (AUTO) 0.7 10^3/uL (0.1-1.4); ABSOLUTE NEUT (AUTO) 5.5 10^3/uL (1.7-8.2); BASOPHILS % (AUTO) 0.3 % (0-2); EOSINOPHILS % (AUTO) 1.3 % (0-6); HEMATOCRIT 22.7 % (36.0-47.0); LYMPHOCYTES % (AUTO) 7.4 % (13-45); MEAN CORPUSCULAR HEMOGLOBIN 32.9 pg (27.0-33.4); MEAN CORPUSCULAR HGB CONC 34.2 g/dL (32.0-36.0); MEAN CORPUSCULAR VOLUME 96 fl (80-97); PLATELET COUNT 178 10^3/uL (150-450); RED BLOOD COUNT 2.36 10^6/uL (3.72-5.28); RED CELL DISTRIBUTION WIDTH 13.6 % (11.5-14.0); TOTAL CELLS COUNTED % (AUTO) 100 %; WHITE BLOOD COUNT 6.8 10^3/uL (4.0-10.5)
[2018-11-20 04:23] LABS: HEMOGLOBIN 7.8 g/dL (12.0-15.5)
[2018-11-20 04:31] LABS: BLOOD UREA NITROGEN 12 mg/dL (7-20); CALCIUM 7.9 mg/dL (8.4-10.2); CHLORIDE 101 mmol/L (98-107); GLUCOSE 123 mg/dL (75-110); POTASSIUM 3.9 mmol/L (3.6-5.0)
[2018-11-20 04:37] LABS: CARBON DIOXIDE 31 mmol/L (22-30); SODIUM 137.6 mmol/L (137-145)
[2018-11-20 04:39] LABS: ANION GAP 6 (5-19)
[2018-11-20] MEDS: HEPARIN SOD (PORCINE) 5,000 UNIT/ML 1 ML SYRINGE SUBCUT SCH ×3 (05:16→23:03)
--- NOTE | 2018-11-20 06:50 | PDOC PROGRESS REPORT ---
Subjective Progress Note for:: 11/20/18 Subjective:: Patient lying in bed calmly. States pain is currently controlled. No issues overnight. Denies chest pain or shortness of breath. Requires minimal-minimal -moderate assistance with physical therapy. Reason For Visit: INTERTROCHANTERIC FRACTURE OF RIGHT FEMUR Physical Exam Vital Signs: Temp Pulse Resp BP Pulse Ox 98.3 F 85 16 134/44 H 90 L 11/20/18 03:37 11/20/18 03:37 11/20/18 03:37 11/20/18 03:37 11/20/18 03:37 Intake & Output 11/18/18 11/19/18 11/20/18 06:59 06:59 06:59 Intake Total 5450 3767 2180 Output Total 2450 2375 1500 Balance 3000 1392 680 Weight 59.7 kg 59.5 kg 62.3 kg Musculoskeletal exam: PRESENT: other - Right hip: Dressing clean/dry/intact no erythema or drainage. Moderate thigh swelling without change, intact plantarflexion/dorsiflexion. No sensory deficits. No calf tenderness. Results Laboratory Results: 11/20/18 03:43 11/20/18 03:43 11/20/18 11/20/18 03:43 03:43 WBC 6.8 RBC 2.36 L Hgb 7.8 L Hct 22.7 L MCV 96 MCH 32.9 MCHC 34.2 RDW 13.6 Plt Count 178 Seg Neutrophils % 81.0 H Lymphocytes % 7.4 L Monocytes % 10.0 Eosinophils % 1.3 Basophils % 0.3 Absolute Neutrophils 5.5 Absolute Lymphocytes 0.5 Absolute Monocytes 0.7 Absolute Eosinophils 0.1 Absolute Basophils 0.0 Sodium 137.6 Potassium 3.9 Chloride 101 Carbon Dioxide 31 H Anion Gap 6 BUN 12 Creatinine 0.57 Est GFR ( Amer) > 60 Est GFR (Non-Af Amer) > 60 Glucose 123 H Calcium 7.9 L Magnesium 1.5 L Impressions: Femur X-Ray 11/16/18 03:31 IMPRESSION: Intertrochanteric fracture deformity better seen on dedicated pelvis x-ray. Osteopenia. No distal femur fracture copyright 2010 [employer]- All Rights Reserved Pelvis X-Ray 11/16/18 03:31 IMPRESSION: 1. Displaced intertrochanteric fracture of the proximal right femur with acute angulation of the fracture fragments. 2. Bilateral iliac artery stents are noted. Chest X-Ray 11/16/18 09:15 IMPRESSION: COPD. NO ACUTE RADIOGRAPHIC FINDING IN THE CHEST. Hip X-Ray 11/17/18 00:00 IMPRESSION: IMAGE(S) OBTAINED DURING PROCEDURE. Chest/Abdomen CTA 11/19/18 00:00 IMPRESSION: 1. No evidence of pulmonary embolus. 2. Lhrd-ar-sxupahqo bilateral effusions with bibasilar atelectasis. Additional adjacent ground-glass attenuation likely atelectasis or edema although infection is not entirely excluded. Assessment & Plan - Diagnosis (1) Closed intertrochanteric fracture of right femur Qualifiers: Encounter type: subsequent encounter Is this a current diagnosis for this admission?: Yes Plan: Postop day #1 status post right hip cephalo-medullary nail 1. Physical therapy weightbearing as tolerated continues to require my normal- moderate 2. Pain control 3. Acute blood loss anemia current hematocrit 22.7 4. Discharge planning patient will require senior living facility when bed available and patient medically stable
[2018-11-20] MEDS: BUDESONIDE NEB 0.5 MG/2 ML AMPUL NEB SCH ×2 (07:34→19:52)
[2018-11-20] MEDS ORDERED: BISACODYL 10 MG SUPP.RECT PR ONE (07:52)
[2018-11-20] MEDS ORDERED: MAGNESIUM SULFATE/D5W 1 GM/100 ML RTUPB IV ONE (08:00)
[2018-11-20] MEDS ORDERED: CALCIUM GLUCONATE 1000 MG/10 ML INJ IV ONE (08:00)
[2018-11-20] MEDS ORDERED: FUROSEMIDE INJ/PF 20 MG/2 ML SDV IV ONE (08:00)
[2018-11-20] MEDS: ONDANSETRON HCL INJ/PF 4 MG/2 ML SDV IV PRN (08:03)
[2018-11-20] MEDS: LATANOPROST 0.005% OPH SOLN 2.5 ML OU SCH (08:04)
[2018-11-20] MEDS: SERTRALINE HCL 50 MG TABLET PO SCH (09:56)
[2018-11-20] MEDS: ASPIRIN 81 MG TABLET, ENT COATED PO SCH (09:56)
[2018-11-20] MEDS: FAMOTIDINE INJ/PF 20 MG/2 ML SDV IV SCH ×2 (09:56→23:03)
[2018-11-20] MEDS: DOCUSATE SODIUM 100 MG CAPSULE PO SCH ×2 (09:56→18:02)
[2018-11-20] MEDS: POLYETHYLENE GLYCOL 3350 POWDER 17 GM/1 PACKET PO SCH (09:56)
[2018-11-20] MEDS: BRIMONIDINE TARTRATE OU SCH ×2 (09:57→23:07)
--- NOTE | 2018-11-20 10:25 | PDOC PROGRESS REPORT ---
Subjective Progress Note for:: 11/20/18 Subjective:: MADELYN ANDERSON is a 83 year old female who presented to the emergency room via EMS with acute right hip pain. She admits tripping over some cords behind her couch causing her to fall, landing on her right side with the instantaneous onset of pain in her right hip area. She describes the pain as a constant, severe, sharp stabbing and grating pain in the right hip area, without radiation, worsened by any movement of her right lower extremity. She denies prior similar episodes and has not identified any additional aggravating or ameliorating factors for her hip pain. In the emergency room she was found to have a closed, displaced, intertrochanteric fracture of the right hip. She was subsequently admitted to the hospital for further evaluation and treatment. 11/19/2018. No acute events overnight, patient complaining of shortness of breath, increasing requirement for supplemental oxygen, currently 95% on 6 L FiO2 44%. I CTA negative for any PE but positive for bilateral pleural effusions. Denies any fever, chills, chest pain,, diarrhea, constipation or any urinary symptoms. 11/20/2018. Patient complaining of constipation, nausea, shortness of breath, still dependent on supplemental oxygen. Right lower extremity pain is improving, denies any fever, chills, chest pain, abdominal pain, diarrhea or any urinary symptoms. Reason For Visit: INTERTROCHANTERIC FRACTURE OF RIGHT FEMUR Physical Exam Vital Signs: Temp Pulse Resp BP Pulse Ox 98.0 F 91 18 153/54 H 92 11/20/18 07:31 11/20/18 07:34 11/20/18 07:34 11/20/18 07:31 11/20/18 07:34 Intake & Output 11/19/18 11/20/18 11/21/18 06:59 06:59 06:59 Intake Total 9102 2180 Output Total 2477 1500 Balance 1392 680 Weight 59.5 kg 62.3 kg General appearance: PRESENT: no acute distress, well-developed, well-nourished Head exam: PRESENT: atraumatic, normocephalic Respiratory exam: PRESENT: clear to auscultation manuel. ABSENT: rales, rhonchi, wheezes Cardiovascular exam: PRESENT: RRR. ABSENT: diastolic murmur, rubs, systolic murmur GI/Abdominal exam: PRESENT: normal bowel sounds, soft. ABSENT: distended, guarding, mass, organolmegaly, rebound, tenderness Musculoskeletal exam: PRESENT: tenderness - Right hip mild swelling TTP over the surgical area. Neurovascularly intact. Neurological exam: PRESENT: alert, awake, oriented to person, oriented to place, oriented to time, oriented to situation, CN II-XII grossly intact. ABSENT: motor sensory deficit Results Laboratory Results: 11/20/18 03:43 11/20/18 03:43 11/20/18 11/20/18 03:43 03:43 WBC 6.8 RBC 2.36 L Hgb 7.8 L Hct 22.7 L MCV 96 MCH 32.9 MCHC 34.2 RDW 13.6 Plt Count 178 Seg Neutrophils % 81.0 H Lymphocytes % 7.4 L Monocytes % 10.0 Eosinophils % 1.3 Basophils % 0.3 Absolute Neutrophils 5.5 Absolute Lymphocytes 0.5 Absolute Monocytes 0.7 Absolute Eosinophils 0.1 Absolute Basophils 0.0 Sodium 137.6 Potassium 3.9 Chloride 101 Carbon Dioxide 31 H Anion Gap 6 BUN 12 Creatinine 0.57 Est GFR ( Amer) > 60 Est GFR (Non-Af Amer) > 60 Glucose 123 H Calcium 7.9 L Magnesium 1.5 L Impressions: Femur X-Ray 11/16/18 03:31 IMPRESSION: Intertrochanteric fracture deformity better seen on dedicated pelvis x-ray. Osteopenia. No distal femur fracture copyright 2010 [employer]- All Rights Reserved Pelvis X-Ray 11/16/18 03:31 IMPRESSION: 1. Displaced intertrochanteric fracture of the proximal right femur with acute angulation of the fracture fragments. 2. Bilateral iliac artery stents are noted. Chest X-Ray 11/16/18 09:15 IMPRESSION: COPD. NO ACUTE RADIOGRAPHIC FINDING IN THE CHEST. Hip X-Ray 11/17/18 00:00 IMPRESSION: IMAGE(S) OBTAINED DURING PROCEDURE. Chest/Abdomen CTA 11/19/18 00:00 IMPRESSION: 1. No evidence of pulmonary embolus. 2. [id number] bilateral effusions with bibasilar atelectasis. Additional adjacent ground-glass attenuation likely atelectasis or edema although infection is not entirely excluded. Assessment and Plan - Diagnosis (1) Acute respiratory failure with hypoxia Is this a current diagnosis for this admission?: Yes Plan: High risk for VTE due to underlying medical condition. CTA negative for any PE. Most likely due to pleural effusion, caused by aggressive volume resuscitation for underlying hypotension. 11/19/2018. CTA chest negative for any PE, positive for bilateral pleural effusi on. Cautious diuresis guided by volume status and vitals. Strict in and out. (2) Chronic obstructive pulmonary disease Qualifiers: COPD type: unspecified COPD Qualified Code(s): J44.9 - Chronic obstructive pulmonary disease, unspecified Is this a current diagnosis for this admission?: Yes Plan: Not on home O2. Does not seem to be exacerbated except for hypoxia due to bilateral pleural effusion which could be due to aggressive volume resuscitation. Continue PRN DuoNeb's, LABA's/LAMA's, supplemental oxygen, PRN BiPAP. Outpatient pulmonology follow-up. (3) Closed intertrochanteric fracture of right femur Qualifiers: Encounter type: subsequent encounter Is this a current diagnosis for this admission?: Yes Plan: Postop day 1 status post right hip cephalo-medullary nail. Continue PT. Orthopedic surgery following, recommendations noted. Plan is to transfer to rehab. (4) Coronary artery disease Qualifiers: Coronary Disease-Associated Artery/Lesion type: [place] artery [place] vs. transplanted heart: [place] heart Associated angina: without angina Qualified Code(s): I25.10 - Atherosclerotic heart disease of [place] coronary artery without angina pectoris Is this a current diagnosis for this admission?: Yes Plan: Denies any anginal symptoms. Continue antiplatelets, statins, SALEEM, beta blockers. (5) Diabetes mellitus type 2 in nonobese Is this a current diagnosis for this admission?: Yes Plan: Well-controlled. Hemoglobin A1c 5.9. Continue diabetic diet, pre-meal insulin, sliding scale insulin, long-acting insulin, hypoglycemic protocol, Accu-Chek. Restart home meds upon discharge. Outpatient follow-up with PCP. (6) Hyperlipidemia Qualifiers: Hyperlipidemia type: unspecified Qualified Code(s): E78.5 - Hyperlipidemia, unspecified Is this a current diagnosis for this admission?: Yes Plan: Continue statins. LFTs WNL. (7) Anemia Is this a current diagnosis for this admission?: Yes Plan: Likely due to recent hip fracture. Denies any nosebleeds, easy bruising, hematemesis, hemoptysis, melena, he matochezia or vaginal bleeding. Pending iron panel and guaiac. Follow-up iron panel and guaiac. Monitor H&H, supportive transfusions. (8) Constipation Is this a current diagnosis for this admission?: Yes Plan: Likely opioid induced. Start on bowel regimen. High-fiber diet. Avoid opioids if possible.
[2018-11-20] MEDS: IPRATROPIUM/ALBUTEROL 0.5-2.5 MG/3 ML AMPUL NEB SCH ×2 (13:03→19:52)
[2018-11-20 14:52] LABS: ARTERIAL BLOOD BASE EXCESS 8.7 mmol/L; ARTERIAL BLOOD FIO2 5.5L; ARTERIAL BLOOD H2CO3 1.64 mmol/L (1.05-1.35); ARTERIAL BLOOD HCO3 34.3 mmol/L (20-24); ARTERIAL BLOOD O2 SATURATION 86.8 % (94-98); ARTERIAL BLOOD PCO2 54.6 mmHg (35-45); ARTERIAL BLOOD PH 7.42 (7.35-7.45); ARTERIAL BLOOD PO2 52.3 mmHg (80-100)
[2018-11-20] MEDS ORDERED: DEXTROSE 50%-WATER SYRINGE 12.5 GM/25 ML DOSE IV PRN (17:30)
[2018-11-20] MEDS ORDERED: DEXTROSE 40% GEL 15 GM TUBE PO PRN (17:30)
[2018-11-20] MEDS ORDERED: GLUCAGON,HUMAN RECOMB 1 MG INJ IM PRN (17:30)
[2018-11-20] MEDS ORDERED: DEXTROSE 50%-WATER SYRINGE 25 GM/50 ML DOSE IV PRN (17:30)
[2018-11-20] MEDS ORDERED: DEXTROSE 40% GEL 15 GM TUBE X 2 PO PRN (17:30)
[2018-11-20] MEDS: INSULIN LISPRO 100 UNIT/ML 3 ML VIAL SUBCUT SCH (23:03)
[2018-11-20] MEDS: LEVOTHYROXINE SODIUM 0.025 MG TABLET PO SCH (23:05)
[2018-11-21] MEDS: IPRATROPIUM/ALBUTEROL 0.5-2.5 MG/3 ML AMPUL NEB SCH ×4 (01:47→19:45)
[2018-11-21] MEDS: OXYCODONE-ACETAMINOPHEN 5-325 MG TABLET PO PRN ×2 (05:23→10:09)
[2018-11-21] MEDS: HEPARIN SOD (PORCINE) 5,000 UNIT/ML 1 ML SYRINGE SUBCUT SCH ×3 (05:24→22:14)
[2018-11-21 05:56] LABS: ABSOLUTE RETICS # 0.062 10^6/uL (0.028-0.122); RETICULOCYTE COUNT (AUTO) 2.33 % (0.66-2.85)
[2018-11-21 06:14] LABS: IRON(TIBC) 23.9 ug/dL (37-170)
[2018-11-21] MEDS: BRIMONIDINE TARTRATE OU SCH ×2 (06:55→10:11)
[2018-11-21] MEDS: INSULIN LISPRO 100 UNIT/ML 3 ML VIAL SUBCUT SCH ×4 (07:23→22:16)
[2018-11-21] MEDS ORDERED: BISACODYL 10 MG SUPP.RECT PR ONE (08:36)
[2018-11-21 09:00] LABS: ANION GAP 7 (5-19); BLOOD UREA NITROGEN 13 mg/dL (7-20); CALCIUM 8.3 mg/dL (8.4-10.2); CARBON DIOXIDE 32 mmol/L (22-30); CHLORIDE 98 mmol/L (98-107); GLUCOSE 118 mg/dL (75-110); POTASSIUM 4.1 mmol/L (3.6-5.0); SODIUM 136.9 mmol/L (137-145)
[2018-11-21 09:04] LABS: ABSOLUTE BASOPHILS # (AUTO) 0.1 10^3/uL (0.0-0.2); ABSOLUTE EOSINOPHILS # (AUTO) 0.1 10^3/uL (0.0-0.6); ABSOLUTE LYMPHOCYTES (AUTO) 0.6 10^3/uL (0.5-4.7); ABSOLUTE MONOCYTES (AUTO) 0.7 10^3/uL (0.1-1.4); ABSOLUTE NEUT (AUTO) 5.2 10^3/uL (1.7-8.2); BASOPHILS % (AUTO) 0.9 % (0-2); EOSINOPHILS % (AUTO) 0.8 % (0-6); HEMATOCRIT 25.5 % (36.0-47.0); HEMOGLOBIN 8.6 g/dL (12.0-15.5); LYMPHOCYTES % (AUTO) 9.6 % (13-45); MEAN CORPUSCULAR HEMOGLOBIN 32.7 pg (27.0-33.4); MEAN CORPUSCULAR HGB CONC 33.8 g/dL (32.0-36.0); MEAN CORPUSCULAR VOLUME 97 fl (80-97); MONOCYTES % (AUTO) 10.4 % (3-13); PLATELET COUNT 258 10^3/uL (150-450); RED BLOOD COUNT 2.63 10^6/uL (3.72-5.28); RED CELL DISTRIBUTION WIDTH 14.1 % (11.5-14.0); SEGMENTED NEUTROPHILS % (AUTO) 78.3 % (42-78); TOTAL CELLS COUNTED % (AUTO) 100 %; WHITE BLOOD COUNT 6.6 10^3/uL (4.0-10.5)
[2018-11-21] MEDS: BUDESONIDE NEB 0.5 MG/2 ML AMPUL NEB SCH ×2 (09:50→19:45)
[2018-11-21] MEDS: LATANOPROST 0.005% OPH SOLN 2.5 ML OU SCH (09:59)
[2018-11-21 10:06] LABS: ARTERIAL BLOOD BASE EXCESS 5.5 mmol/L; ARTERIAL BLOOD H2CO3 1.51 mmol/L (1.05-1.35); ARTERIAL BLOOD O2 SATURATION 92.6 % (94-98); ARTERIAL BLOOD PCO2 50.3 mmHg (35-45); ARTERIAL BLOOD PH 7.41 (7.35-7.45); ARTERIAL BLOOD TOTAL CO2 32.5 mmol/L (21-25)
[2018-11-21 10:07] LABS: ARTERIAL BLOOD FIO2 40%
[2018-11-21] MEDS: SERTRALINE HCL 50 MG TABLET PO SCH (10:09)
[2018-11-21] MEDS: DOCUSATE SODIUM 100 MG CAPSULE PO SCH ×2 (10:09→17:27)
[2018-11-21] MEDS: ASPIRIN 81 MG TABLET, ENT COATED PO SCH (10:09)
[2018-11-21] MEDS: FAMOTIDINE INJ/PF 20 MG/2 ML SDV IV SCH ×2 (10:11→22:14)
[2018-11-21] MEDS: POLYETHYLENE GLYCOL 3350 POWDER 17 GM/1 PACKET PO SCH (10:11)
[2018-11-21] MEDS: PREDNISONE 20 MG TABLET PO SCH (10:12)
--- NOTE | 2018-11-21 11:54 | PDOC PROGRESS REPORT ---
Subjective Progress Note for:: 11/21/18 Subjective:: MADELYN ANDERSON is a 83 year old female who presented to the emergency room via EMS with acute right hip pain. She admits tripping over some cords behind her couch causing her to fall, landing on her right side with the instantaneous onset of pain in her right hip area. She describes the pain as a constant, severe, sharp stabbing and grating pain in the right hip area, without radiation, worsened by any movement of her right lower extremity. She denies prior similar episodes and has not identified any additional aggravating or ameliorating factors for her hip pain. In the emergency room she was found to have a closed, displaced, intertrochanteric fracture of the right hip. She was subsequently admitted to the hospital for further evaluation and treatment. 11/19/2018. No acute events overnight, patient complaining of shortness of breath, increasing requirement for supplemental oxygen, currently 95% on 6 L FiO2 44%. I CTA negative for any PE but positive for bilateral pleural effusions. Denies any fever, chills, chest pain,, diarrhea, constipation or any urinary symptoms. 11/20/2018. Patient complaining of constipation, nausea, shortness of breath, still dependent on supplemental oxygen. Right lower extremity pain is improving, denies any fever, chills, chest pain, abdominal pain, diarrhea or any urinary symptoms. 11/21/2018. No acute events overnight. Patient still hypoxic, dependent on supplemental oxygen, had a bowel movement. Denies fever, chills, nausea, vomiting, diarrhea, chest pain. Reason For Visit: INTERTROCHANTERIC FRACTURE OF RIGHT FEMUR Physical Exam Vital Signs: Temp Pulse Resp BP Pulse Ox 98.2 F 78 18 133/55 H 90 L 11/21/18 07:55 11/21/18 08:38 11/21/18 08:38 11/21/18 07:55 11/21/18 08:38 Intake & Output 11/20/18 11/21/18 11/22/18 06:59 06:59 06:59 Intake Total 2180 1117 Output Total 1500 Balance 680 1117 Weight 62.3 kg 60.9 kg General appearance: PRESENT: no acute distress, well-developed, well-nourished Head exam: PRESENT: atraumatic, normocephalic Eye exam: PRESENT: conjunctiva pink, EOMI, PERRLA. ABSENT: scleral icterus Ear exam: PRESENT: normal external ear exam Mouth exam: PRESENT: moist, tongue midline Neck exam: ABSENT: carotid bruit, JVD, lymphadenopathy, thyromegaly Respiratory exam: PRESENT: clear to auscultation manuel. ABSENT: rales, rhonchi, wheezes Cardiovascular exam: PRESENT: RRR. ABSENT: diastolic murmur, rubs, systolic murmur Pulses: PRESENT: normal dorsalis pedis pul Vascular exam: PRESENT: normal capillary refill GI/Abdominal exam: PRESENT: normal bowel sounds, soft. ABSENT: distended, guarding, mass, organolmegaly, rebound, tenderness Rectal exam: PRESENT: deferred Extremities exam: PRESENT: full ROM. ABSENT: calf tenderness, clubbing, pedal edema Neurological exam: PRESENT: alert, awake, oriented to person, oriented to place, oriented to time, oriented to situation, CN II-XII grossly intact. ABSENT: motor sensory deficit Psychiatric exam: PRESENT: appropriate affect, normal mood. ABSENT: homicidal ideation, suicidal ideation Skin exam: PRESENT: dry, intact, warm. ABSENT: cyanosis, rash Results Laboratory Results: 11/21/18 05:00 11/21/18 05:00 11/20/18 11/21/18 11/21/18 11:15 05:00 05:00 WBC RBC Hgb Hct MCV MCH MCHC RDW Plt Count Seg Neutrophils % Lymphocytes % Monocytes % Eosinophils % Basophils % Absolute Neutrophils Absolute Lymphocytes Absolute Monocytes Absolute Eosinophils Absolute Basophils Retic Count (auto) 2.33 Absolute Retic 0.062 Carbonic Acid 1.64 H HCO3/H2CO3 Ratio 20:1 ABG pH 7.42 ABG pCO2 54.6 H ABG pO2 52.3 L ABG HCO3 34.3 H ABG O2 Saturation 86.8 L ABG Base Excess 8.7 FiO2 5.5L Sodium Potassium Chloride Carbon Dioxide Anion Gap BUN Creatinine Est GFR ( Amer) Est GFR (Non-Af Amer) Glucose Calcium Iron 23.9 L TIBC 232 L % Saturation 10 Ferritin 129.00 Vitamin B12 975.0 H Folate 10.80 11/21/18 11/21/18 11/21/18 05:00 05:00 09:41 WBC 6.6 RBC 2.63 L Hgb 8.6 L Hct 25.5 L MCV 97 MCH 32.7 MCHC 33.8 RDW 14.1 H Plt Count 258 Seg Neutrophils % 78.3 H Lymphocytes % 9.6 L Monocytes % 10.4 Eosinophils % 0.8 Basophils % 0.9 Absolute Neutrophils 5.2 Absolute Lymphocytes 0.6 Absolute Monocytes 0.7 Absolute Eosinophils 0.1 Absolute Basophils 0.1 Retic Count (auto) Absolute Retic Carbonic Acid 1.51 H HCO3/H2CO3 Ratio 20:1 ABG pH 7.41 ABG pCO2 50.3 H ABG pO2 65.0 L ABG HCO3 31.0 H ABG O2 Saturation 92.6 L ABG Base Excess 5.5 FiO2 40% Sodium 136.9 L Potassium 4.1 Chloride 98 Carbon Dioxide 32 H Anion Gap 7 BUN 13 Creatinine 0.51 L Est GFR ( Amer) > 60 Est GFR (Non-Af Amer) > 60 Glucose 118 H Calcium 8.3 L Iron TIBC % Saturation Ferritin Vitamin B12 Folate Impressions: Femur X-Ray 11/16/18 03:31 IMPRESSION: Intertrochanteric fracture deformity better seen on dedicated pelvis x-ray. Osteopenia. No distal femur fracture copyright 2010 [employer]- All Rights Reserved Pelvis X-Ray 11/16/18 03:31 IMPRESSION: 1. Displaced intertrochanteric fracture of the proximal right femur with acute angulation of the fracture fragments. 2. Bilateral iliac artery stents are noted. Chest X-Ray 11/16/18 09:15 IMPRESSION: COPD. NO ACUTE RADIOGRAPHIC FINDING IN THE CHEST. Hip X-Ray 11/17/18 00:00 IMPRESSION: IMAGE(S) OBTAINED DURING PROCEDURE. Chest/Abdomen CTA 11/19/18 00:00 IMPRESSION: 1. No evidence of pulmonary embolus. 2. [id number] bilateral effusions with bibasilar atelectasis. Additional adjacent ground-glass attenuation likely atelectasis or edema although infection is not entirely excluded. Assessment and Plan - Diagnosis (1) Acute respiratory failure with hypoxia Is this a current diagnosis for this admission?: Yes Plan: High risk for VTE due to underlying medical condition. CTA negative for any PE. Most likely due to pleural effusion, caused by aggressive volume resuscitation for underlying hypotension. 11/19/2018. CTA chest negative for any PE, positive for bilateral pleural effusion. Cautious diuresis guided by volume status and vitals. Strict in and out. (2) Chronic obstructive pulmonary disease Qualifiers: COPD type: unspecified COPD Qualified Code(s): J44.9 - Chronic obstructive pulmonary disease, unspecified Is this a current diagnosis for this admission?: Yes Plan: Not on home O2. Does not seem to be exacerbated except for hypoxia due to bilateral pleural effusion which could be due to aggressive volume resuscitation. Continue PRN DuoNeb's, LABA's/LAMA's, supplemental oxygen, PRN BiPAP. Outpatient pulmonology follow-up. (3) Closed intertrochanteric fracture of right femur Qualifiers: Encounter type: subsequent encounter Is this a current diagnosis for this admission?: Yes Plan: Postop day 1 status post right hip cephalo-medullary nail. Continue PT. Orthopedic surgery following, recommendations noted. Plan is to transfer to rehab. (4) Coronary artery disease Qualifiers: Coronary Disease-Associated Artery/Lesion type: [place] artery [place] vs. transplanted heart: [place] heart Associated angina: without angina Qualified Code(s): I25.10 - Atherosclerotic heart disease of [place] coronary artery without angina pectoris Is this a current diagnosis for this admission?: Yes Plan: Denies any anginal symptoms. Continue antiplatelets, statins, SALEEM, beta blockers. (5) Diabetes mellitus type 2 in nonobese Is this a current diagnosis for this admission?: Yes Plan: Well-controlled. Hemoglobin A1c 5.9. Continue diabetic diet, pre-meal insulin, sliding scale insulin, long-acting insulin, hypoglycemic protocol, Accu-Chek. Restart home meds upon discharge. Outpatient follow-up with PCP. (6) Hyperlipidemia Qualifiers: Hyperlipidemia type: unspecified Qualified Code(s): E78.5 - Hyperlipidemia, unspecified Is this a current diagnosis for this admission?: Yes Plan: Continue statins. LFTs WNL. (7) Anemia Is this a current diagnosis for this admission?: Yes Plan: Likely due to recent hip fracture. Denies any nosebleeds, easy bruising, hematemesis, hemoptysis, melena, hematochezia or vaginal bleeding. Iron panel suggestive of iron deficiency anemia. 11/21/2018. Serum iron 23.9, TIBC 232, percent saturation 10, ferritin 129. B12 975, folate 10.8. Monitor H&H, supportive transfusions. Pending stool guaiac. Will start on supplemental iron. (8) Constipation Is this a current diagnosis for this admission?: Yes Plan: Likely opioid induced. Start on bowel regimen. High-fiber diet. Avoid opioids if possible.
[2018-11-21] MEDS: LEVOTHYROXINE SODIUM 0.025 MG TABLET PO SCH (22:15)
[2018-11-22] MEDS: OXYCODONE-ACETAMINOPHEN 5-325 MG TABLET PO PRN (01:28)
[2018-11-22] MEDS: IPRATROPIUM/ALBUTEROL 0.5-2.5 MG/3 ML AMPUL NEB SCH ×3 (02:42→14:27)
[2018-11-22] MEDS: BRIMONIDINE TARTRATE OU SCH ×2 (04:56→09:21)
[2018-11-22] MEDS: HEPARIN SOD (PORCINE) 5,000 UNIT/ML 1 ML SYRINGE SUBCUT SCH ×2 (05:05→13:41)
[2018-11-22] MEDS: INSULIN LISPRO 100 UNIT/ML 3 ML VIAL SUBCUT SCH ×3 (07:15→16:29)
[2018-11-22] MEDS: LATANOPROST 0.005% OPH SOLN 2.5 ML OU SCH (07:42)
[2018-11-22] MEDS: BUDESONIDE NEB 0.5 MG/2 ML AMPUL NEB SCH (08:21)
[2018-11-22] MEDS: PREDNISONE 20 MG TABLET PO SCH (09:20)
[2018-11-22] MEDS: SERTRALINE HCL 50 MG TABLET PO SCH (09:20)
[2018-11-22] MEDS: FAMOTIDINE INJ/PF 20 MG/2 ML SDV IV SCH (09:20)
[2018-11-22] MEDS: ASPIRIN 81 MG TABLET, ENT COATED PO SCH (09:20)
[2018-11-22] MEDS: DOCUSATE SODIUM 100 MG CAPSULE PO SCH (09:20)
[2018-11-22] MEDS: POLYETHYLENE GLYCOL 3350 POWDER 17 GM/1 PACKET PO SCH (09:21)
--- NOTE | 2018-11-22 14:49 | PDOC PROGRESS REPORT ---
Subjective Subjective:: Patient lying in bed calmly. States pain is currently controlled. No issues overnight. Denies chest pain or shortness of breath. Was able to ambulate 20 feet with assistance Reason For Visit: INTERTROCHANTERIC FRACTURE OF RIGHT FEMUR Physical Exam Vital Signs: Temp Pulse Resp BP Pulse Ox 97.5 F 74 18 121/51 L 97 11/22/18 11:53 11/22/18 14:28 11/22/18 14:28 11/22/18 11:53 11/22/18 14:28 Intake & Output 11/21/18 11/22/18 11/23/18 06:59 06:59 06:59 Intake Total 1117 540 360 Output Total 1 400 Balance 1117 539 -40 Weight 60.9 kg 58.9 kg Musculoskeletal exam: PRESENT: other - Right hip: Dressing clean/dry/intact no erythema or drainage. Moderate thigh swelling without change, intact plantarflexion/dorsiflexion. No sensory deficits. No calf tenderness. Results Laboratory Results: 11/21/18 05:00 11/21/18 05:00 11/21/18 19:27 Stool Occult Blood NEGATIVE Impressions: Femur X-Ray 11/16/18 03:31 IMPRESSION: Intertrochanteric fracture deformity better seen on dedicated pelvis x-ray. Osteopenia. No distal femur fracture copyright 2011 [employer]- All Rights Reserved Pelvis X-Ray 11/16/18 03:31 IMPRESSION: 1. Displaced intertrochanteric fracture of the proximal right femur with acute angulation of the fracture fragments. 2. Bilateral iliac artery stents are noted. Chest X-Ray 11/16/18 09:15 IMPRESSION: COPD. NO ACUTE RADIOGRAPHIC FINDING IN THE CHEST. Hip X-Ray 11/17/18 00:00 IMPRESSION: IMAGE(S) OBTAINED DURING PROCEDURE. Chest/Abdomen CTA 11/19/18 00:00 IMPRESSION: 1. No evidence of pulmonary embolus. 2. [id number] bilateral effusions with bibasilar atelectasis. Additional adjacent ground-glass attenuation likely atelectasis or edema although infection is not entirely excluded. Assessment & Plan - Diagnosis (1) Closed intertrochanteric fracture of right femur Qualifiers: Encounter type: subsequent encounter Is this a current diagnosis for this admission?: Yes Plan: Postop day #1 status post right hip cephalo-medullary nail 1. Physical therapy weightbearing as tolerated continues to require my normal- moderate 2. Pain control 3. Acute blood loss anemia H&H currently stable 4. Discharge planning patient will require [facility] facility when bed available and patient medically stable
--- NOTE | 2018-11-22 15:11 | PDOC TRANSFER SUMMARY ---
General Admission Date/PCP: 11/16/18 05:35 SAHRA BRAGA NP Resuscitation Status: Do Not Resuscitate - Transfer Diagnosis (1) Acute respiratory failure with hypoxia Is this a current diagnosis for this admission?: Yes (2) Chronic obstructive pulmonary disease Is this a current diagnosis for this admission?: Yes (3) Closed intertrochanteric fracture of right femur Is this a current diagnosis for this admission?: Yes (4) Coronary artery disease Is this a current diagnosis for this admission?: Yes (5) Diabetes mellitus type 2 in nonobese Is this a current diagnosis for this admission?: Yes (6) Hyperlipidemia Is this a current diagnosis for this admission?: Yes (7) Anemia Is this a current diagnosis for this admission?: Yes (8) Constipation Is this a current diagnosis for this admission?: Yes - Transfer Medications Home Medications: Aspirin [Ecotrin] 81 mg PO DAILY 02/23/16 Lisinopril [Zestril] 5 mg PO Q12 02/23/16 Sitagliptin Phosphate [Januvia] 100 mg PO DAILY 02/23/16 Brimonidine Tartrate [Alphagan P] 1 drop OU BID 11/16/18 Latanoprost/Pf [Latanoprost 0.005% Eye Drop] 1 drop OU QAM 11/16/18 Levothyroxine Sodium [Synthroid 0.025 mg Tablet] 25 mcg PO QHS 11/16/18 Omeprazole Magnesium [Prilosec Otc] 20 mg PO DAILY 11/16/18 Sertraline HCl [Zoloft] 25 mg PO DAILY 11/16/18 Transfer Medications: Current Medications Acetaminophen (Tylenol 325 Mg Tablet) 650 mg PO Q4HP PRN PRN Reason: For headache, pain or fever Stop: 12/16/18 05:54 Last Admin: 11/18/18 21:30 Dose: 650 mg Documented by: Acetaminophen (Tylenol 650 Mg Supp) 650 mg HI Q4HP PRN PRN Reason: For headache, pain or fever Stop: 12/16/18 05:54 Albuterol/Ipratropium (Duoneb 3 Ml Ampul) 3 ml NEB RTQ6 JENELLE Stop: 12/20/18 13:59 Last Admin: 11/22/18 14:27 Dose: 3 ml Documented by: Aspirin (Ecotrin 81 Mg Ec Tablet) 81 mg PO DAILY JENELLE Stop: 12/19/18 09:59 Last Admin: 11/22/18 09:20 Dose: 81 mg Documented by: Budesonide (Pulmicort Neb 0.5 Mg/2 Ml Ampul) 0.5 mg NEB RTBID [facility] Stop: 12/16/18 07:59 Last Admin: 11/22/18 08:21 Dose: 0.5 mg Documented by: Dextrose (Dextrose Inj 50% Syringe (25 Gm/50 Ml)) 12.5 gm IV PRN PRN; Protocol PRN Reason: FOR BG 50-69 IN ALERT PATIENT Stop: 12/20/18 17:29 Dextrose (Dextrose Inj 50% Syringe (25 Gm/50 Ml)) 25 gm IV PRN PRN; Protocol Stop: 12/20/18 17:29 Docusate Sodium (Colace 100 Mg Capsule) 200 mg PO BID [facility] Stop: 12/20/18 09:59 Last Admin: 11/22/18 09:20 Dose: 200 mg Documented by: Famotidine (Pepcid Inj/Pf 20 Mg/2 Ml Sdv) 20 mg IV Q12 JENELLE Stop: 12/16/18 09:59 Last Admin: 11/22/18 09:20 Dose: 20 mg Documented by: Glucagon (Glucagen Inj 1 Mg Vial) 1 mg IM PRN PRN; Protocol PRN Reason: EVALUATE FOR BG < 70 Stop: 12/20/18 17:29 Glucose (Glutose 40% Gel 15 Gm Tube) 15 gm PO PRN PRN; Protocol PRN Reason: FOR BG 50-69 IN ALERT PATIENT Stop: 12/20/18 17:29 Glucose (Glutose 40% Gel 15 Gm Tube) 30 gm PO PRN PRN; Protocol PRN Reason: FOR BG < 50 IN ALERT PATIENT Stop: 12/20/18 17:29 Heparin Sodium (Porcine) (Heparin Inj 5,000 Units/Ml 1 Ml Syringe) 5,000 unit SUBCUT Q8 JENELLE Stop: 12/16/18 05:59 Last Admin: 11/22/18 13:41 Dose: 5,000 unit Documented by: Hydralazine HCl (Apresoline Inj/Pf 20 Mg/1 Ml Sdv) 20 mg IV Q4HP PRN PRN Reason: Give For Sbp > 160 / Dbp > 100 Stop: 12/16/18 05:54 Insulin Human Lispro (Humalog Insulin 100 Unit/1 Ml 3 Ml Vial) 0 - 12 unit SUBCUT ACHS [facility]; Protocol Stop: 12/20/18 21:59 Last Admin: 11/22/18 11:36 Dose: 2 unit Documented by: Latanoprost (Xalatan 0.005% Oph Soln 2.5 Ml) 1 drop OU QAM [facility] Stop: 12/19/18 11:59 Last Admin: 11/22/18 07:42 Dose: 1 drop Documented by: Levothyroxine Sodium (Synthroid 0.025 Mg Tablet) 0.025 mg PO QHS [facility] Stop: 12/19/18 21:59 Last Admin: 11/21/18 22:15 Dose: 0.025 mg Documented by: Metoprolol Tartrate (Lopressor Inj/Pf 5 Mg/5 Ml Sdv) 5 mg IV Q4HP PRN PRN Reason: Give For Sbp > 160 / Dbp > 100 Stop: 12/16/18 05:54 Ondansetron HCl (Zofran Inj/Pf 4 Mg/2 Ml Sdv) 4 mg IV Q4HP PRN PRN Reason: FOR NAUSEA/VOMITING Stop: 12/16/18 05:47 Last Admin: 11/20/18 08:03 Dose: 4 mg Documented by: Oxycodone/Acetaminophen (Percocet 5-325 Mg Tablet) 1 tab PO Q4HP PRN PRN Reason: FOR PAIN Stop: 11/24/18 15:03 Last Admin: 11/22/18 01:28 Dose: 1 tab Documented by: Brimonidine Tartrate ([Alphagan P] 1%) 1 dose OU Q12 [facility] Stop: 12/19/18 21:59 Last Admin: 11/22/18 09:21 Dose: Not Given Documented by: Polyethylene Glycol (Miralax Powder 17 Gm/Packet) 17 gm PO DAILY [facility] Stop: 12/20/18 09:59 Last Admin: 11/22/18 09:21 Dose: Not Given Documented by: Prednisone (Deltasone 20 Mg Tablet) 40 mg PO DAILY [facility] Stop: 11/25/18 09:59 Last Admin: 11/22/18 09:20 Dose: 40 mg Documented by: Sertraline HCl (Zoloft 50 Mg Tablet) 50 mg PO DAILY [facility] Stop: 12/21/18 09:59 Last Admin: 11/22/18 09:20 Dose: 50 mg Documented by: Sodium Chloride (Saline Flush 2.5 Ml Monoject Prefil Syrin) 2.5 ml IV Q8 JENELLE Stop: 12/16/18 05:59 Last Admin: 11/22/18 13:41 Dose: 2.5 ml Documented by: - Allergies Allergies/Adverse Reactions: pregabalin [From Lyrica] Allergy (Mild, Verified 11/16/18 05:16) WEAKNESS OF LIMBS, SWELLING IN LEGS - Diet/Activity Discharge Diet: As Tolerated Hospital Course Hospital Course: MADELYN ANDERSON is a 83 year old female who presented to the emergency room via EMS with acute right hip pain. She admits tripping over some cords behind her couch causing her to fall, landing on her right side with the instantaneous onset of pain in her right hip area. She describes the pain as a constant, severe, sharp stabbing and grating pain in the right hip area, without radiation, worsened by any movement of her right lower extremity. She denies prior similar episodes and has not identified any additional aggravating or ameliorating factors for her hip pain. In the emergency room she was found to have a closed, displaced, intertrochanteric fracture of the right hip. She was subsequently admitted to the hospital for further evaluation and treatment. (1) Acute respiratory failure with hypoxia High risk for VTE due to underlying medical condition. CTA negative for any PE. This was likely worsened by due to pleural effusion, caused by aggressive volume resuscitation for underlying hypotension. 11/19/2018. CTA chest negative for any PE, positive for bilateral pleural effusion. Was a started cautious diuresis guided by volume status. Started on PRN DuoNeb's, LABA's/LAMA's, supplemental oxygen, PRN BiPAP. (2) Chronic obstructive pulmonary disease Not on home O2. Does not seem to be exacerbated except for hypoxia due to bilateral pleural effusion which could be due to aggressive volume resuscitation. Started on PRN DuoNeb's, LABA's/LAMA's, supplemental oxygen, PRN BiPAP. Follow-up with PCP and pulmonology as outpatient. (3) Closed intertrochanteric fracture of right femur Postop day 6 status post right hip cephalo-medullary nail. Continued PT. Orthopedic surgery following, recommendations noted. Will be transferred to rehab where he can continue rehab. Patient has an appointment on 12/06/[address] Forde orthopedic surgeon. (4) Coronary artery disease Denied any anginal symptoms. Was restarted on antiplatelets, statins, SALEEM, beta blockers. (5) Diabetes mellitus type 2 in nonobese Well-controlled. Hemoglobin A1c 5.9. Continue diabetic diet, pre-meal insulin, sliding scale insulin, long-acting insulin, hypoglycemic protocol, Accu-Chek. Restart home meds upon discharge. Outpatient follow-up with PCP. (6) Hyperlipidemia Continue statins. LFTs WNL. (7) Anemia H&H improving. Likely due to recent hip fracture. Guaiac negative. Denies any nosebleeds, easy bruising, hematemesis, hemoptysis, melena, he matochezia or vaginal bleeding. Iron panel suggestive of iron deficiency anemia. 11/21/2018. Serum iron 23.9, TIBC 232, percent saturation 10, ferritin 129. B12 975, folate 10.8. (8) Constipation Resolved. Was started on bowel regimen. Likely opioid induced. Contineu high fiber diet. Avoid opioids if possible. Physical Exam Vital Signs: Temp Pulse Resp BP Pulse Ox 97.5 F 74 18 121/51 L 97 11/22/18 11:53 11/22/18 14:28 11/22/18 14:28 11/22/18 11:53 11/22/18 14:28 Intake & Output 11/21/18 11/22/18 11/23/18 06:59 06:59 06:59 Intake Total 1117 540 360 Output Total 1 400 Balance 1117 539 -40 Weight 60.9 kg 58.9 kg General appearance: PRESENT: no acute distress, well-developed, well-nourished Head exam: PRESENT: atraumatic, normocephalic Eye exam: PRESENT: conjunctiva pink, EOMI, PERRLA. ABSENT: scleral icterus Ear exam: PRESENT: normal external ear exam Mouth exam: PRESENT: moist, tongue midline Neck exam: ABSENT: carotid bruit, JVD, lymphadenopathy, thyromegaly Respiratory exam: PRESENT: clear to auscultation manuel. ABSENT: rales, rhonchi, wheezes Cardiovascular exam: PRESENT: RRR. ABSENT: diastolic murmur, rubs, systolic murmur Pulses: PRESENT: normal dorsalis pedis pul Vascular exam: PRESENT: normal capillary refill GI/Abdominal exam: PRESENT: normal bowel sounds, soft. ABSENT: distended, guarding, mass, organolmegaly, rebound, tenderness Rectal exam: PRESENT: deferred Extremities exam: PRESENT: full ROM. ABSENT: calf tenderness, clubbing, pedal edema Neurological exam: PRESENT: alert, awake, oriented to person, oriented to place, oriented to time, oriented to situation, CN II-XII grossly intact. ABSENT: motor sensory deficit Psychiatric exam: PRESENT: appropriate affect, normal mood. ABSENT: homicidal ideation, suicidal ideation Skin exam: PRESENT: dry, intact, warm. ABSENT: cyanosis, rash Results Laboratory Results: 11/21/18 05:00 11/21/18 05:00 11/21/18 19:27 Stool Occult Blood NEGATIVE Impressions: Femur X-Ray 11/16/18 03:31 IMPRESSION: Intertrochanteric fracture deformity better seen on dedicated pelvis x-ray. Osteopenia. No distal femur fracture copyright 2011 [employer]- All Rights Reserved Pelvis X-Ray 11/16/18 03:31 IMPRESSION: 1. Displaced intertrochanteric fracture of the proximal right femur with acute angulation of the fracture fragments. 2. Bilateral iliac artery stents are noted. Chest X-Ray 11/16/18 09:15 IMPRESSION: COPD. NO ACUTE RADIOGRAPHIC FINDING IN THE CHEST. Hip X-Ray 11/17/18 00:00 IMPRESSION: IMAGE(S) OBTAINED DURING PROCEDURE. Chest/Abdomen CTA 11/19/18 00:00 IMPRESSION: 1. No evidence of pulmonary embolus. 2. [id number] bilateral effusions with bibasilar atelectasis. Additional adjacent ground-glass attenuation likely atelectasis or edema although infection is not entirely excluded.
[2018-11-22 16:39] VITALS: BP 119/56
== END 2018-11-22 17:00 | DRG 480 ==
LOC: ER 03:21 → EH 05:35 → 3N 08:00 → 4N 11-20 16:26
PROVIDERS: ADMIT Emergency Medicine; ATTEND Emergency Medicine
PROC: 0QS636Z Reposition Right Upper Femur with Intramedullary Internal Fixation Device, Percutaneous Approach (ICD-10-PCS; principal; 2018-11-17 11:00)
DX: S72.141A Displaced intertrochanteric fracture of right femur, initial encounter for closed fracture (principal); J96.01 Acute respiratory failure with hypoxia; D62 Acute posthemorrhagic anemia; W01.0XXA Fall on same level from slipping, tripping and stumbling without subsequent striking against object, initial encounter; J44.9 Chronic obstructive pulmonary disease, unspecified; I25.10 Atherosclerotic heart disease of native coronary artery without angina pectoris; E11.9 Type 2 diabetes mellitus without complications; E78.5 Hyperlipidemia, unspecified; F32.9 Major depressive disorder, single episode, unspecified; I10 Essential (primary) hypertension; F41.1 Generalized anxiety disorder; K59.03 Drug induced constipation; Z79.899 Other long term (current) drug therapy; Z88.6 Allergy status to analgesic agent; Z95.5 Presence of coronary angioplasty implant and graft; Z95.2 Presence of prosthetic heart valve; Z60.2 Problems related to living alone; Z66 Do not resuscitate; Z83.3 Family history of diabetes mellitus; Z79.82 Long term (current) use of aspirin
CPT/HCPCS: 01230; 36415; 36600; 71045; 71275; 72170; 80048; 80053; 80061; 81001; 82272; 82607; 82728; 82746; 82803; 82962; 83036; 83540; 83550; 83735; 84439; 84443; 84481; 85025; 85027; 85045; 86850; 86900; 86901; 87086; 93005; 93010; 94640; 96374; 96375; 99285; C1713; C1769; J0610; J0696; J1644; J1815; J1885; J1940; J2250; J2270; J2370; J2405; J2704; J3010; J3475; J3490; J7060; J7120; J7512; J7620; S0028

== ENCOUNTER 2019-01-02 13:23 | Emergency (ER) | payer MEDICARE, OTHER ==
[2019-01-02 14:18] LABS: VENOUS BLOOD BASE EXCESS 0.5 mmol/L; VENOUS BLOOD HCO3 27.2 mmol/L (20-32); VENOUS BLOOD PCO2 54.2 mmHg (35-63); VENOUS BLOOD PH 7.32 (7.30-7.42)
[2019-01-02 14:23] LABS: ABSOLUTE LYMPHOCYTES (AUTO) 0.6 10^3/uL (0.5-4.7); ABSOLUTE MONOCYTES (AUTO) 0.9 10^3/uL (0.1-1.4); ABSOLUTE NEUT (AUTO) 8.8 10^3/uL (1.7-8.2); BASOPHILS % (AUTO) 0.1 % (0-2); HEMATOCRIT 31.7 % (36.0-47.0); HEMOGLOBIN 10.6 g/dL (12.0-15.5); LYMPHOCYTES % (AUTO) 5.5 % (13-45); MEAN CORPUSCULAR HGB CONC 33.4 g/dL (32.0-36.0); MEAN CORPUSCULAR VOLUME 99 fl (80-97); PLATELET COUNT 212 10^3/uL (150-450); PROTHROMBIN TIME 14.2 SEC (11.4-15.4); RED BLOOD COUNT 3.21 10^6/uL (3.72-5.28); RED CELL DISTRIBUTION WIDTH 15.3 % (11.5-14.0); SEGMENTED NEUTROPHILS % (AUTO) 85.4 % (42-78); TOTAL CELLS COUNTED % (AUTO) 100 %; WHITE BLOOD COUNT 10.3 10^3/uL (4.0-10.5)
[2019-01-02 14:35] LABS: ALBUMIN 3.1 g/dL (3.5-5.0); ALKALINE PHOSPHATASE 69 U/L (38-126); ANION GAP 6 (5-19); ASPARTATE AMINO TRANSFERASE 18 U/L (14-36); BILIRUBIN,DIRECT 0.2 mg/dL (0.0-0.4); BILIRUBIN,TOTAL 0.2 mg/dL (0.2-1.3); BLOOD UREA NITROGEN 18 mg/dL (7-20); CARBON DIOXIDE 28 mmol/L (22-30); CHLORIDE 103 mmol/L (98-107); GLUCOSE 103 mg/dL (75-110); TOTAL PROTEIN 5.4 g/dL (6.3-8.2)
[2019-01-02] MEDS ORDERED: RINGERS SOLUTION,LACTATED 1,000 ML IV ONE (14:36)
--- NOTE | 2019-01-02 14:37 | ER Document Report ---
ED General - General Chief Complaint: Blood Pressure Problem Stated Complaint: FALL/HIP PAIN Time Seen by Provider: 01/02/19 13:54 Primary Care Provider: ELIEZER ZACARIAS MD [NO LOCAL MD] - Follow up in 3-5 days Notes: Patient is a 83-year-old female status post hip surgery done in November who presents to the emergency department for hypotension. She was at her primary care provider's office and her blood pressure was 72/43. Patient denies any symptoms other than being dizzy at that time. Patient states that she feels better after receiving a liter of lactated Ringer's from EMS. She has a past medical history of diabetes, hypertension, hypothyroidism. She states that she gets around well and uses her walker. She lives at home alone. Daughter is at bedside and states that the patient has not been drinking a lot of water according to continue home health care. TRAVEL OUTSIDE OF THE [place] IN LAST 30 DAYS: No - Related Data Allergies/Adverse Reactions: pregabalin [From Lyrica] Allergy (Mild, Verified 11/16/18 05:16) WEAKNESS OF LIMBS, SWELLING IN LEGS metronidazole [From Flagyl] Allergy (Verified 01/02/19 13:50) Past Medical History - Social History Smoking Status: Never Smoker Frequency of alcohol use: None Drug Abuse: None Family History: DM, Malignancy. denies: CAD, Hypertension Patient has suicidal ideation: No Patient has homicidal ideation: No - Past Medical History Cardiac Medical History: Reports: Hx Coronary Artery Disease, Hx Hypercholesterolemia, Hx Hypertension Denies: Hx Heart Attack Pulmonary Medical History: Reports: Hx COPD Denies: Hx Asthma, Hx Bronchitis, Hx Pneumonia, Hx Respiratory Failure, Hx Sleep Apnea Neurological Medical History: Denies: Hx Cerebrovascular Accident, Hx Seizures Endocrine Medical History: Reports: Hx Diabetes Mellitus Type 2. Denies: Hx Diabetes Mellitus Type 1, Hx Hyperthyroidism, Hx Hypothyroidism Renal/ Medical History: Denies: Hx Peritoneal Dialysis GI Medical History: Denies: Hx Cirrhosis, Hx Crohn's Disease, Hx Hepatitis, Hx Ulcerative Colitis Musculoskeletal Medical History: Denies Hx Arthritis, Denies Hx Gout Skin Medical History: Denies Hx Eczema, Denies Hx Psoriasis Psychiatric Medical History: Reports: Hx Depression Infectious Medical History: Denies: Hx Hepatitis Past Surgical History: Reports: Hx Cardiac Catheterization, Hx Coronary Stent, Hx Hysterectomy, Hx Valve Replacement - Mitral, Hx Vascular Surgery - Stents in both legs, Other - Bilateral cataracts - Immunizations Immunizations up to date: Yes Hx Diphtheria, Pertussis, Tetanus Vaccination: No Review of Systems - Review of Systems Notes: REVIEW OF SYSTEMS: CONSTITUTIONAL : Denies recent illness. Denies recent unintentional weight loss. Denies fever, chills, or sweats. EENT: Denies eye, ear, throat, or mouth pain, discharge, or symptoms. Denies nasal or sinus congestion. CARDIOVASCULAR: Denies chest pain. RESPIRATORY: Denies shortness of breath, cough, congestion, difficulty breathing, or wheezing. GASTROINTESTINAL: Denies nausea, vomiting, and diarrhea. Denies abdominal pain. Denies constipation. GENITOURINARY: Denies difficulty urinating, burning, blood in urine, urgency or frequency. MUSCULOSKELETAL: Denies neck and back pain. Denies joint pain or swelling. SKIN: Denies rash, itchiness, or lesions HEMATOLOGIC : Denies easy bruising or bleeding. LYMPHATIC: Denies swollen, painful, enlarged glands. NEUROLOGICAL: See HPI denies alteration in speech. PSYCHIATRIC: Denies stress, anxiety, alteration in sleep patterns, or depression. All other systems reviewed and negative. Physical Exam - Vital signs Vitals: Pulse Ox 100 01/02/19 13:46 - Notes Notes: PHYSICAL EXAMINATION: GENERAL: Appears well, healthy, well-nourished, no acute distress. HEAD: Normocephalic, atraumatic. EYES: PERRL, conjunctiva normal, all extraocular movements intact, sclera nonicteric ENT: Dry mucous membranes. NECK: Supple, no noticeable swelling, redness, rash. Normal range of motion. LUNGS: Equal breath sounds bilaterally and clear to auscultation. No wheezes rales or rhonchi. CARDIOVASCULAR: S1-S2, regular rate, regular rhythm. Radial pulses 2+, normal. ABDOMEN: Normoactive bowel sounds. Soft, nontender, no guarding, no rebound tenderness, and no masses palpated. EXTREMITIES: Normal strength and range of motion, no pitting or edema. No cyanosis. NEUROLOGICAL: Moves all extremities upon command. Strength 5/5 in all extremities. PSYCH: Normal mood, normal affect. SKIN: Warm, dry. No rash, lesions, ulcerations noted. Normal skin turgor. Course - Re-evaluation Re-evalutation: 01/02/19 15:15 Patient's hematology does not show a leukocytosis. Her white blood cell count is 10,300. Her hemoglobin is 10.6, which she is chronically anemic based off of her previous lab values from when she was admitted in mid November. Her VBG is nor mal chemistry shows a slightly low sodium, consistent with dehydration. Her lactic acid is 2.0. Patient has received a liter of fluids. Her blood pressure is still little on the low side, so I will give her another liter of fluids. Patient and daughter deny any congestive heart failure or kidney problems. Her BUN and creatinine are normal. Awaiting urinalysis. 01/02/19 17:13 Patient's urinalysis shows a moderate amount of leukocytes in her urine. She will receive a gram of Rocephin. I reviewed this case by Dr. Alvarez and recycled her blood pressure, which is 118/53 with a map of 74. I asked Dr. Alvarez if the patient is stable for discharge. He is in agreement with me that the patient w ill be sent home with oral antibiotics and follow-up with her primary care provider. Follow-up precautions were given. Verbal discharge instructions were given to the patient. They verbalized understanding. They are stable for discharge. Patient's daughter is going to be back and I will update her also. Instructions on holding the patient's blood pressure medication tonight and to recheck blood pressure in the morning will be given. - Vital Signs Vital signs: Temp Pulse Resp BP Pulse Ox 98.6 F 79 10 L 118/53 L 100 01/02/19 13:48 01/02/19 13:48 01/02/19 17:12 01/02/19 17:12 01/02/19 17:12 - Laboratory Result Diagrams: 01/02/19 14:00 01/02/19 14:00 Laboratory results interpreted by me: 01/02/19 01/02/19 01/02/19 14:00 14:00 16:30 RBC 3.21 L Hgb 10.6 L Hct 31.7 L MCV 99 H RDW 15.3 H Lymph % (Auto) 5.5 L Absolute Neuts (auto) 8.8 H Seg Neutrophils % 85.4 H Sodium 136.7 L Est GFR (MDRD) Non-Af 49 L Total Protein 5.4 L Albumin 3.1 L Ur Leukocyte Esterase MODERATE H - EKG Interpretation by Me Additional EKG results interpreted by me: 01/02/19 14:40 Sinus rhythm. Rate 79. NH 156. QRS 84; QT 388; QTc 436. No ST elevations or depressions noted. No acute change from previous EKG done on November 16, 2017. Discharge - Discharge Clinical Impression: Hypotension Qualifiers: Hypotension type: unspecified hypotension type Qualified Code(s): I95.9 - Hypotension, unspecified Urinary tract infection Qualifiers: Urinary tract infection type: site unspecified Hematuria presence: without hematuria Qualified Code(s): N39.0 - Urinary tract infection, site not specified Condition: Stable Disposition: HOME, SELF-CARE Instructions: Cephalexin ([facility]) Additional Instructions: Your urine shows findings consistent with a urinary tract infection. Please take all the antibiotics as directed even if your symptoms have improved. Please follow-up with your primary care physician as needed. Return to emergency room if you develop fever >101F, persistent vomiting, become lethargic, have severe pain in your sides, or any other symptoms that are concerning to you. Please make sure you stay well-hydrated to prevent your blood pressure from going down to low. Please check your blood pressure before taking your blood pressure medication. Skip today's dose and recheck your blood pressure in the morning. If your blood pressure is 135/80, take your blood pressure medication as ordered. Prescriptions: Cephalexin [Keflex] 500 mg PO BID #14 capsule Referrals: ELIEZER ZACARIAS MD [NO LOCAL MD] - Follow up in 3-5 days
[2019-01-02 16:54] LABS: APPEARANCE,URINE CLEAR; BILIRUBIN,URINE NEGATIVE (NEGATIVE); COLOR,URINE YELLOW; GLUCOSE, URINE NEGATIVE (NEGATIVE); KETONES,URINE NEGATIVE (NEGATIVE); LEUKOCYTE ESTERASE,URINE MODERATE (NEGATIVE); NITRITE,URINE NEGATIVE (NEGATIVE); PROTEIN,URINE NEGATIVE (NEGATIVE); URINE SPECIFIC GRAVITY 1.004; UROBILINOGEN,URINE NEGATIVE mg/dL (<2.0)
[2019-01-02] MEDS ORDERED: CEFTRIAXONE 1 GM/D5W RTU 1 GM/50 ML RTUPB IV ONE (17:02)
[2019-01-02 17:14] VITALS: BP 118/53
--- NOTE | 2019-01-02 19:01 | EKG REPORT ---
SEVERITY:- NORMAL ECG - SINUS RHYTHM : Confirmed by: Haresh Mckenna MD 02-Jan-2019 19:00:34
== END 2019-01-02 19:12 | disposition home or self-care (01) ==
LOC: ER 13:23
DX: I95.9 Hypotension, unspecified (principal); N39.0 Urinary tract infection, site not specified; R42 Dizziness and giddiness; E11.9 Type 2 diabetes mellitus without complications; I10 Essential (primary) hypertension; E03.9 Hypothyroidism, unspecified; I25.10 Atherosclerotic heart disease of native coronary artery without angina pectoris; Z90.710 Acquired absence of both cervix and uterus; Z95.2 Presence of prosthetic heart valve
CPT/HCPCS: 93005; 99285; 96361; 96365; 36415; 87040; 87086; 85025; 85610; 87088; 80053; 81001; 87186; 82803; 83605; 93010; J7120; J0696

== ENCOUNTER → 2019-01-28 | Outpatient (CLI) | payer MEDICARE, OTHER ==
[2019-01-28 16:11] LABS: ANION GAP 10 (5-19); BLOOD UREA NITROGEN 18 mg/dL (7-20); CALCIUM 9.3 mg/dL (8.4-10.2); CARBON DIOXIDE 28 mmol/L (22-30); CHLORIDE 101 mmol/L (98-107); GLUCOSE 114 mg/dL (75-110); POTASSIUM 4.3 mmol/L (3.6-5.0)
[2019-01-28 16:12] LABS: ALBUMIN 4.1 g/dL (3.5-5.0); ALKALINE PHOSPHATASE 69 U/L (38-126); ASPARTATE AMINO TRANSFERASE 26 U/L (14-36); BILIRUBIN,DIRECT 0.2 mg/dL (0.0-0.4); BILIRUBIN,TOTAL 0.3 mg/dL (0.2-1.3); TOTAL PROTEIN 6.7 g/dL (6.3-8.2)
== END ==
LOC: OD 14:10
PROVIDERS: ATTEND Physician Assistant
DX: E78.00 Pure hypercholesterolemia, unspecified (principal); I10 Essential (primary) hypertension; R06.02 Shortness of breath; Z79.899 Other long term (current) drug therapy
CPT/HCPCS: 36415; 80048; 80076; 83880

== ENCOUNTER → 2019-05-12 | Outpatient (CLI) | payer MEDICARE, OTHER ==
[2019-05-12 14:44] LABS: ALBUMIN 4.2 g/dL (3.5-5.0); ALKALINE PHOSPHATASE 60 U/L (38-126); ANION GAP 10 (5-19); ASPARTATE AMINO TRANSFERASE 25 U/L (14-36); BILIRUBIN,DIRECT 0.2 mg/dL (0.0-0.4); BILIRUBIN,TOTAL 0.4 mg/dL (0.2-1.3); BLOOD UREA NITROGEN 20 mg/dL (7-20); CALCIUM 9.7 mg/dL (8.4-10.2); CARBON DIOXIDE 29 mmol/L (22-30); CHLORIDE 101 mmol/L (98-107); GLUCOSE 136 mg/dL (75-110); TOTAL PROTEIN 6.8 g/dL (6.3-8.2)
[2019-05-13 10:04] LABS: CHOLESTEROL 144.87 mg/dL (0-200); TRIGLYCERIDES 171 mg/dL (<150)
[2019-05-13 10:15] LABS: DIRECT LDL 55 mg/dL (<100)
[2019-05-13 10:19] LABS: VLDL CHOLESTEROL 34.2 mg/dL (10-31)
== END ==
LOC: OD 13:19
PROVIDERS: ATTEND Physician Assistant
DX: I10 Essential (primary) hypertension (principal); E78.00 Pure hypercholesterolemia, unspecified; R06.02 Shortness of breath; Z79.899 Other long term (current) drug therapy
CPT/HCPCS: 36415; 80048; 80061; 80076; 83880

== ENCOUNTER → 2019-11-10 | Outpatient (CLI) | payer MEDICARE, OTHER ==
[2019-11-10 10:21] LABS: ALBUMIN 4.2 g/dL (3.5-5.0); ALKALINE PHOSPHATASE 141 U/L (38-126); ANION GAP 8 (5-19); ASPARTATE AMINO TRANSFERASE 25 U/L (14-36); BILIRUBIN,TOTAL 0.5 mg/dL (0.2-1.3); BLOOD UREA NITROGEN 23 mg/dL (7-20); CALCIUM 9.6 mg/dL (8.4-10.2); CARBON DIOXIDE 30 mmol/L (22-30); CHLORIDE 102 mmol/L (98-107); CHOLESTEROL 137.44 mg/dL (0-200); GLUCOSE 158 mg/dL (75-110); POTASSIUM 4.7 mmol/L (3.6-5.0); TOTAL PROTEIN 6.8 g/dL (6.3-8.2); TRIGLYCERIDES 137 mg/dL (<150)
[2019-11-10 10:32] LABS: DIRECT LDL 59 mg/dL (<100)
--- NOTE | 2019-11-10 10:39 | EKG REPORT ---
SEVERITY:- BORDERLINE ECG - SINUS RHYTHM PROBABLE LEFT ATRIAL ABNORMALITY : Confirmed by: Haresh Mckenna MD 10-Nov-2019 10:38:22
== END ==
LOC: OD 09:11
PROVIDERS: ATTEND Physician Assistant
DX: E78.00 Pure hypercholesterolemia, unspecified (principal); R06.02 Shortness of breath; R07.9 Chest pain, unspecified; I10 Essential (primary) hypertension; Z79.899 Other long term (current) drug therapy
CPT/HCPCS: 36415; 80048; 80061; 80076; 83880; 93005; 93010

== ENCOUNTER → 2020-02-11 | Outpatient (CLI) | payer MEDICARE, OTHER ==
[2020-02-11 10:25] LABS: ALBUMIN 4.2 g/dL (3.5-5.0); ALKALINE PHOSPHATASE 67 U/L (38-126); ANION GAP 10 (5-19); ASPARTATE AMINO TRANSFERASE 29 U/L (14-36); BILIRUBIN,DIRECT 0.3 mg/dL (0.0-0.4); BILIRUBIN,TOTAL 0.4 mg/dL (0.2-1.3); BLOOD UREA NITROGEN 18 mg/dL (7-20); CALCIUM 9.1 mg/dL (8.4-10.2); CARBON DIOXIDE 27 mmol/L (22-30); CHLORIDE 104 mmol/L (98-107); CHOLESTEROL 126.59 mg/dL (0-200); GLUCOSE 116 mg/dL (75-110); POTASSIUM 4.1 mmol/L (3.6-5.0); TOTAL PROTEIN 6.3 g/dL (6.3-8.2); TRIGLYCERIDES 130 mg/dL (<150)
[2020-02-11 10:36] LABS: DIRECT LDL 43 mg/dL (<100)
== END ==
LOC: OD 08:53
PROVIDERS: ATTEND Physician Assistant
DX: R06.02 Shortness of breath (principal); E11.9 Type 2 diabetes mellitus without complications; R94.5 Abnormal results of liver function studies; E78.00 Pure hypercholesterolemia, unspecified; I10 Essential (primary) hypertension; Z79.899 Other long term (current) drug therapy
CPT/HCPCS: 36415; 80048; 80061; 80076; 83036

== ENCOUNTER → 2020-04-13 | Outpatient (CLI) | payer MEDICARE, OTHER ==
[2020-04-13 10:48] LABS: ALBUMIN 4.3 g/dL (3.5-5.0); ALKALINE PHOSPHATASE 78 U/L (38-126); ASPARTATE AMINO TRANSFERASE 29 U/L (14-36); BILIRUBIN,DIRECT 0.2 mg/dL (0.0-0.4); BILIRUBIN,TOTAL 0.7 mg/dL (0.2-1.3); CHOLESTEROL 132.37 mg/dL (0-200); TOTAL PROTEIN 6.8 g/dL (6.3-8.2); TRIGLYCERIDES 115 mg/dL (<150)
[2020-04-13 10:59] LABS: DIRECT LDL 42 mg/dL (<100)
== END ==
LOC: OD 09:13
PROVIDERS: ATTEND Physician Assistant
DX: E78.00 Pure hypercholesterolemia, unspecified (principal); Z79.899 Other long term (current) drug therapy
CPT/HCPCS: 36415; 80061; 80076

== ENCOUNTER → 2020-04-27 | Outpatient (CLI) | payer MEDICARE, OTHER ==
[2020-04-27 15:08] LABS: ANION GAP 9 (5-19); BLOOD UREA NITROGEN 22 mg/dL (7-20); CALCIUM 9.4 mg/dL (8.4-10.2); CARBON DIOXIDE 30 mmol/L (22-30); CHLORIDE 100 mmol/L (98-107); GLUCOSE 87 mg/dL (75-110); POTASSIUM 4.1 mmol/L (3.6-5.0)
== END ==
LOC: OD 13:30
PROVIDERS: ATTEND Internal Medicine Cardiovascular Disease
DX: R06.02 Shortness of breath (principal); I10 Essential (primary) hypertension; Z79.899 Other long term (current) drug therapy
CPT/HCPCS: 36415; 80048; 83880

== ENCOUNTER 2020-05-11 19:25 | Emergency (ER) | payer MEDICARE ==
--- NOTE | 2020-05-11 20:45 | ER Document Report ---
ED Medical Screen (RME) - General Chief Complaint: Closed Head Injury Stated Complaint: HEAD INJURY Time Seen by Provider: 05/11/20 20:36 Primary Care Provider: DAVE LANE MD [Primary Care Provider] - Follow up as needed TRAVEL OUTSIDE OF THE [place] IN LAST 30 DAYS: No - HPI Notes: 05/11/20 20:41 85-year-old female with a history of hypertension hyperlipidemia and COPD presents to the emergency room with family member for evaluation of a head laceration that she sustained after she slipped while she was in her bedroom slippers in the house and fell backwards onto a laminate ground. Prior to falling, denies any dizziness, confusion prior. Patient does take 81 mg of daily aspirin daily. Unwitnessed event. Patient does have a laceration to the back of her head, bleeding is somewhat controlled. Denies any other area of injury. Denies any chest pain, shortness of breath, nausea, vomiting, dizziness, lightheadedness, vision changes. Denies any pain. Denies headache. denies neck pain I have greeted and performed a rapid initial assessment of this patient. A comprehensive ED assessment and evaluation of the patient, analysis of test results and completion of the medical decision making process will be conducted by additional ED providers. PHYSICAL EXAMINATION: GENERAL: Well-appearing, well-nourished and in no acute distress. HEAD: Atraumatic, normocephalic. posterior laceration approx 1cm. EYES: Pupils equal round extraocular movements intact, conjunctiva are normal. NECK: limited range of motion. CV: s1, s2 regular LUNGS: No respiratory distress NEUROLOGICAL: Normal speech, in wheelchair The patient was evaluated during a global COVID-19 pandemic and that diagnosis was suspected/considered upon their initial presentation. Their evaluation, treatment and testing was consistent with current guidelines for patients who present with complaints or symptoms and may be related to COVID-19. 05/11/20 20:42 - Related Data Allergies/Adverse Reactions: pregabalin [From Lyrica] Allergy (Mild, Verified 05/11/20 20:36) WEAKNESS OF LIMBS, SWELLING IN LEGS metronidazole [From Flagyl] Allergy (Verified 05/11/20 20:36) Home Medications: ASP Past Medical History - Social History Frequency of alcohol use: None Drug Abuse: None - Past Medical History Cardiac Medical History: Reports: Hx Coronary Artery Disease, Hx Hypercholesterolemia, Hx Hypertension Denies: Hx Heart Attack Pulmonary Medical History: Reports: Hx COPD Denies: Hx Asthma, Hx Bronchitis, Hx Pneumonia, Hx Respiratory Failure, Hx Sleep Apnea Neurological Medical History: Denies: Hx Cerebrovascular Accident, Hx Seizures Endocrine Medical History: Reports: Hx Diabetes Mellitus Type 2. Denies: Hx Diabetes Mellitus Type 1, Hx Hyperthyroidism, Hx Hypothyroidism Renal/ Medical History: Denies: Hx Peritoneal Dialysis GI Medical History: Denies: Hx Cirrhosis, Hx Crohn's Disease, Hx Hepatitis, Hx Ulcerative Colitis Musculoskeltal Medical History: Denies Hx Arthritis, Denies Hx Gout Skin Medical History: Denies Hx Eczema, Denies Hx Psoriasis Psychiatric Medical History: Reports: Hx Depression Infectious Medical History: Denies: Hx Hepatitis Past Surgical History: Reports: Hx Cardiac Catheterization, Hx Coronary Stent, Hx Hysterectomy, Hx Valve Replacement - Mitral, Hx Vascular Surgery - Stents in both legs, Other - Bilateral cataracts - Immunizations Immunizations up to date: Yes Hx Diphtheria, Pertussis, Tetanus Vaccination: No Doctor's Discharge - Discharge Referrals: DAVE LANE MD [Primary Care Provider] - Follow up as needed
--- NOTE | 2020-05-11 22:05 | RADIOLOGY REPORT (SQ) ---
EXAM DESCRIPTION: CT HEAD WITHOUT IV CONTRAST COMPLETED DATE/TME: 05/11/2020 21:23 CLINICAL HISTORY: 85 years, Female, slipped when in house,fell backwards on floor,+lac COMPARISON: None. TECHNIQUE: Axial images without IV contrast. Sagittal coronal reconstruction. Images stored on PACS. All CT scanners at this facility use dose modulation, iterative reconstruction, and/or weight based dosing when appropriate to reduce radiation dose to as low as reasonably achievable (ALARA). FINDINGS: Normal size ventricles. Mild cortical atrophy. No acute intra-axial or extra-axial abnormality. Paranasal sinuses, mastoid air cells and bony calvarium are unremarkable. IMPRESSION: No acute findings intracranially.
--- NOTE | 2020-05-11 22:09 | RADIOLOGY REPORT (SQ) ---
EXAM DESCRIPTION: CT CERVICAL SPINE WITHOUT IV CONTRAST COMPLETED DATE/TME: 05/11/2020 21:23 CLINICAL HISTORY: 85 years, Female, slipped when in house,fell backwards on floor,+lac COMPARISON: None. TECHNIQUE: Axial images without IV contrast. Sagittal coronal reconstruction. This exam was performed according to our departmental dose-optimization program, which includes automated exposure control, adjustment of the mA and/or kV according to patient size and/or use of iterative reconstruction technique.. Images stored on PACS. All CT scanners at this facility use dose modulation, iterative reconstruction, and/or weight based dosing when appropriate to reduce radiation dose to as low as reasonably achievable (ALARA). FINDINGS: No obvious acute fracture. Mild anterior subluxation at C4-5 is more likely chronic. No suspicious prevertebral soft tissue swelling. Greater discopathy at C5-6 on the left with mild left paracentral stenosis and prominent left foraminal stenosis. Wide canal. No additional areas of central or foraminal stenosis. Advanced atherosclerotic disease at the origin of both internal carotid arteries. Limited images of the upper abdomen demonstrate emphysema. IMPRESSION: 1. No obvious acute findings in the cervical spine. Subluxation at C4-5 more likely chronic. 2. Spinal stenosis at C5-6 mainly left foraminal stenosis. 3. Advanced atherosclerotic disease at the origin of both internal carotid arteries. Emphysema in the upper lung beckwith.
--- NOTE | 2020-05-12 00:41 | EKG REPORT ---
SEVERITY:- NORMAL ECG - SINUS RHYTHM : Confirmed by: Obey Box 12-May-2020 00:40:34
--- NOTE | 2020-05-12 05:21 | ER Document Report ---
ED Head/Face/Scalp Injury - General Chief Complaint: Closed Head Injury Stated Complaint: HEAD INJURY Time Seen by Provider: 05/11/20 20:36 Primary Care Provider: DAVE LANE MD [Primary Care Provider] - Follow up as needed Mode of Arrival: Ambulatory Information source: Patient Notes: ED Medical Screen (Tomasz Padilla) - General Chief Complaint: Closed Head Injury Stated Complaint: HEAD INJURY Time Seen by Provider: 05/11/20 20:36 Primary Care Provider: DAVE LANE MD [Primary Care Provider] - Follow up as needed TRAVEL OUTSIDE OF THE [place] IN LAST 30 DAYS: No - HPI Notes: 05/11/20 20:41 85-year-old female with a history of hypertension hyperlipidemia and COPD presents to the emergency room with family member for evaluation of a head laceration that she sustained after she slipped while she was in her bedroom slippers in the house and fell backwards onto a laminate ground. Prior to falling, denies any dizziness, confusion prior. Patient does take 81 mg of daily aspirin daily. Unwitnessed event. Patient does have a laceration to the back of her head, bleeding is somewhat controlled. Denies any other area of injury. Denies any chest pain, shortness of breath, nausea, vomiting, dizziness, lightheadedness, vision changes. Denies any pain. Denies headache. denies neck pain I have greeted and performed a rapid initial assessment of this patient. A com prehensive ED assessment and evaluation of the patient, analysis of test results and completion of the medical decision making process will be conducted by additional ED providers. PHYSICAL EXAMINATION: GENERAL: Well-appearing, well-nourished and in no acute distress. HEAD: Atraumatic, normocephalic. posterior laceration approx 1cm. EYES: Pupils equal round extraocular movements intact, conjunctiva are normal. NECK: limited range of motion. CV: s1, s2 regular LUNGS: No respiratory distress NEUROLOGICAL: Normal speech, in wheelchair MY NOTES 85-year-old female with history of head laceration after she staying sustained as after she slipped while in bedroom slippers in the house and fell backwards onto a laminate ground. CT scan of head was normal and CT of neck was positive for subluxation chronic at C4-5 with spinal stenosis at C5-C6 atherosclerotic vascular disease TRAVEL OUTSIDE OF THE [place] IN LAST 30 DAYS: No - HPI Patient complains to provider of: Contusion, Injury, Other - abrasion hemoglobin of 5.6 Injury to: Scalp Where: Home Timing: Better Context: Fell - Related Data Allergies/Adverse Reactions: pregabalin [From Lyrica] Allergy (Mild, Verified 05/11/20 20:36) WEAKNESS OF LIMBS, SWELLING IN LEGS metronidazole [From Flagyl] Allergy (Verified 05/11/20 20:36) Home Medications: ASP Past Medical History - General Information source: Patient, Relative - Daughter - Social History Smoking Status: Former Smoker Cigarette use (# per day): No Chew tobacco use (# tins/day): No Smoking Education Provided: No Frequency of alcohol use: None Drug Abuse: None Lives with: Family Family History: DM, Malignancy. denies: CAD, Hypertension Patient has suicidal ideation: No Patient has homicidal ideation: No - Past Medical History Cardiac Medical History: Reports: Hx Coronary Artery Disease, Hx Hypercholesterolemia, Hx Hypertension Denies: Hx Heart Attack Pulmonary Medical History: Reports: Hx COPD Denies: Hx Asthma, Hx Bronchitis, Hx Pneumonia, Hx Respiratory Failure, Hx Sleep Apnea Neurological Medical History: Denies: Hx Cerebrovascular Accident, Hx Seizures Endocrine Medical History: Reports: Hx Diabetes Mellitus Type 2. Denies: Hx Diabetes Mellitus Type 1, Hx Hyperthyroidism, Hx Hypothyroidism Renal/ Medical History: Denies: Hx Peritoneal Dialysis GI Medical History: Denies: Hx Cirrhosis, Hx Crohn's Disease, Hx Hepatitis, Hx Ulcerative Colitis Musculoskeletal Medical History: Denies Hx Arthritis, Denies Hx Gout Skin Medical History: Denies Hx Eczema, Denies Hx Psoriasis Psychiatric Medical History: Reports: Hx Depression Infectious Medical History: Denies: Hx Hepatitis Past Surgical History: Reports: Hx Cardiac Catheterization, Hx Coronary Stent, Hx Hysterectomy, Hx Valve Replacement - Mitral, Hx Vascular Surgery - Stents in both legs, Other - Bilateral cataracts - Immunizations Immunizations up to date: Yes Hx Diphtheria, Pertussis, Tetanus Vaccination: No Review of Systems - Review of Systems Constitutional: No symptoms reported EENT: See HPI, Other - Occipital scalp abrasion around 1 cm length and diameter with dried blood on lopez hair Cardiovascular: No symptoms reported Respiratory: No symptoms reported Gastrointestinal: No symptoms reported Genitourinary: No symptoms reported Female Genitourinary: No symptoms reported Musculoskeletal: No symptoms reported Skin: See HPI Hematologic/Lymphatic: No symptoms reported Neurological/Psychological: No symptoms reported -: Yes All other systems reviewed and negative Physical Exam - Vital signs Vitals: Temp Pulse Resp BP Pulse Ox 98.2 F 64 18 155/51 H 99 05/11/20 19:33 05/11/20 19:33 05/11/20 19:33 05/11/20 19:33 05/11/20 19:33 Interpretation: Normal - General General appearance: Appears well, Alert - HEENT Head: Normocephalic, Other - Posterior scalp laceration regions around 1 cm simple Eyes: Normal Pupils: PERRL Ears: Normal Sinus: Normal Nasal: Normal - She did Mouth/Lips: Normal Pharynx: Normal Neck: Normal - Respiratory Respiratory status: No respiratory distress Chest status: Nontender Breath sounds: Normal Chest palpation: Normal - Cardiovascular Rhythm: Regular Heart sounds: Normal auscultation Murmur: No - Abdominal Inspection: Normal Distension: No distension Bowel sounds: Normal Tenderness: Nontender Organomegaly: No organomegaly - Rectal Hemorrhoids: Other - deferred - Genitourinary Bimanuel exam: Other - deferred - Back Back: Normal, Nontender - Extremities General upper extremity: Normal inspection, Nontender, Normal color, Normal ROM, Normal temperature General lower extremity: Normal inspection, Nontender, Normal color, Normal ROM, Normal temperature, Normal weight bearing. No: April's sign - Neurological Neuro grossly intact: Yes Cognition: Normal Orientation: AAOx4 [place] Coma Scale Eye Opening: Spontaneous [place] Coma Scale Verbal: Oriented [place] Coma Scale Motor: Obeys Commands [place] Coma Scale Total: 15 Speech: Normal Motor strength normal: LUE, RUE, LLE, RLE Sensory: Normal - Psychological Associated symptoms: Normal affect, Normal mood - Skin Skin Temperature: Warm Skin Moisture: Dry Skin Color: Normal Course - Vital Signs Vital signs: Temp Pulse Resp BP Pulse Ox 98.1 F 68 18 87/58 L 92 05/12/20 04:10 05/12/20 04:10 05/11/20 19:33 05/12/20 04:10 05/12/20 04:10 - Laboratory Results Critical Laboratory Results Reviewed: No Critical Results Attending or Supervising Physician who Reviewed Labs: FILIBERTO BENZ JR - Radiology Results Radiology Results Interpreted: 05/12/20 05:21 Bogdan radiologist read [address] CT Critical Radiology Results Reviewed: Yes Attending or Supervising Physician who Reviewed Radiology: FILIBERTO BENZ JR Discharge - Discharge Clinical Impression: Fall Qualifiers: Encounter type: initial encounter Qualified Code(s): W19.XXXA - Unspecified fall, initial encounter Scalp abrasion Qualifiers: Encounter type: initial encounter Qualified Code(s): S00.01XA - Abrasion of scalp, initial encounter Condition: Stable Disposition: HOME, SELF-CARE Additional Instructions: Follow-up with personal doctor and return to ER as needed and take your usual medicines. May apply cool compress to injured head and scalp Referrals: DAVE LANE MD [Primary Care Provider] - Follow up as needed
[2020-05-12 05:47] VITALS: BP 117/68
== END 2020-05-12 05:49 | disposition home or self-care (01) ==
LOC: ER 19:25
DX: S01.01XA Laceration without foreign body of scalp, initial encounter (principal); W01.0XXA Fall on same level from slipping, tripping and stumbling without subsequent striking against object, initial encounter; Y92.009 Unspecified place in unspecified non-institutional (private) residence as the place of occurrence of the external cause; M43.5X2 Other recurrent vertebral dislocation, cervical region; M48.02 Spinal stenosis, cervical region; I25.10 Atherosclerotic heart disease of native coronary artery without angina pectoris; I10 Essential (primary) hypertension; E11.9 Type 2 diabetes mellitus without complications; J44.9 Chronic obstructive pulmonary disease, unspecified; Z79.82 Long term (current) use of aspirin; Z87.891 Personal history of nicotine dependence; Z88.6 Allergy status to analgesic agent; Z88.5 Allergy status to narcotic agent
CPT/HCPCS: 70450; 72125; 93005; 93010; 99284